=== PATIENT | female | born 1985 | race Two or more races ===

== ENCOUNTER 2021-11-24 09:12 | Emergency (ER) | payer OTHER, MEDICAID, SELFPAY ==
--- NOTE | ~2021-11-24 | US_ITS ---
EXAMINATION: US ABDOMEN LIMITED CLINICAL INFORMATION: Right upper quadrant pain. COMPARISON: Previous CT of the abdomen and pelvis from earlier the same day TECHNIQUE: Real-time imaging of the right upper quadrant abdominal viscera. FINDINGS: The gallbladder is upper normal in size measuring 10 x 4.5 x 5 cm in dimension. No gallstones are seen. The gallbladder wall is normal. There is no pericholecystic fluid. The common bile duct is normal in caliber measuring 0.4 cm. US/US abdomen limited IMPRESSION: Upper normal-size gallbladder. No gallstone seen.
--- NOTE | ~2021-11-24 | CT_ITS ---
EXAMINATION: CT ABDOMEN AND PELVIS WITHOUT CONTRAST CLINICAL INFORMATION: Abdominal pain COMPARISON: None TECHNIQUE: Multidetector volumetric imaging was performed from the superior aspect of the liver through the pubic symphysis. Sagittal and coronal reformatted images were obtained on the technologist's workstation. This CT examination was performed using dose optimization techniques as appropriate, variously including the following: *Automated exposure control *Adjustment of mA and/or kV according to patient size (this includes techniques or standardized protocols for targeted exams where dose is matched to indication/reason for exam; i.e. extremities or head) *Use of iterative reconstruction technique DLP: 768 mGy-cm FINDINGS: LUNG BASES: The visualized lung bases are unremarkable. LIVER, GALLBLADDER, AND BILIARY TREE: The liver is normal in size, shape, and attenuation. No focal hepatic lesion or biliary ductal dilatation is present. The gallbladder is upper normal in size measuring 4.5 x 4.5 x 10 cm. No gallstones are appreciated by CT scan. PANCREAS: Unremarkable. SPLEEN: Unremarkable. ADRENAL GLANDS: Unremarkable. KIDNEYS AND URETERS: The kidneys are normal in size, shape, and attenuation. No hydronephrosis, hydroureter, or calculi seen. No perinephric stranding. BLADDER: Unremarkable. GASTROINTESTINAL TRACT: There are 2 linear radiopaque densities that abuts the proximal sigmoid void: In the upper midline pelvis and left lateral wall of the more distal sigmoid colon in the more inferior pelvis. It is uncertain whether this is related to previous postsurgical change to the colon or could represent a malpositioned FERRYBOAT OPERATOR HELPER device. The small and large bowel is otherwise normal. There is no free air. There is no ascites. The appendix is normal. The appendix is unremarkable. ABDOMINAL WALL: There is diastasis of the rectus muscles. There are postsurgical changes to the lower abdominal wall. LYMPH NODES: Normal. VASCULAR: Unremarkable. PELVIC VISCERA: There are bilateral Essure devices in the pelvis that appear appropriately positioned in the fallopian tubes. There are 2 additional linear densities in the pelvis outside the uterus that abuts the left side of the sigmoid colon in the low pelvis axial image 71 series 3 and about the more proximal sigmoid colon in the upper pelvis for example axial image 69 series 3. It is uncertain whether this represents postsurgical change to the colon or could represent abnormal position of FERRYBOAT OPERATOR HELPER device. The uterus and adnexa are otherwise unremarkable. OSSEOUS STRUCTURES: Unremarkable. CT/CT abdomen pelvis wo con IMPRESSION: Upper normal-size gallbladder. No gallstones are appreciated by CT. Could be better evaluated with ultrasound if clinically indicated. No biliary duct dilatation. Bilateral fallopian tube Essure devices. There are 2 additional linear radiopaque densities in the pelvis adjacent to the sigmoid colon. It is uncertain whether this is related to previous surgery to the sigmoid colon or could represent abnormally positioned FERRYBOAT OPERATOR HELPER devices. Clinical correlation recommended. Fleischner guidelines were followed.
[2021-11-24 09:17] VITALS: BP 134/83; PULSE 88; RESP 18; TEMP 36; O2SAT 100; BMI 37.5
[2021-11-24 09:28] LABS: MANUAL DIFF FLAG NO
[2021-11-24 09:30] LABS: Basophils Percent Auto 0.4 % (0-2); Eosinophils Absolute Auto 0.1 X10*3/uL (0.0-0.4); Eosinophils Percent Auto 1.2 % (0-4); Hematocrit 41.4 % (37.0-47.0); Hemoglobin 13.2 g/dl (12.0-16.0); Imm Gran Abs Auto 0.06 X10*3/uL (0.00-0.03); Imm Gran Pct Auto 0.7 % (0.0-0.4); Lymphocytes Absolute Auto 2.7 X10*3/uL (1.2-4.9); Mean Corpuscular HGB Conc 31.9 g/dl (31.0-35.0); Mean Corpuscular Volume 84.8 fL (80.0-98.0); Mean Platelet Volume 9.8 fL (9.4-12.3); Monocytes Absolute Auto 0.5 X10*3/uL (0.1-1.2); Monocytes Percent Auto 5.3 % (2-11); Neutrophils Absolute Auto 5.2 x10*3/uL (2.0-8.3); Neutrophils Percent Auto 60.4 % (45-73); Platelet Count 333 X10*3/uL (160-400); Red Blood Count 4.88 X10*6/uL (4.20-5.50); Red Cell Distribution Width 12.7 % (11.0-16.0); White Blood Count 8.6 X10*3/uL (4.8-10.8)
--- NOTE | 2021-11-24 09:37 | ED_ITS ---
HPI - Abdominal Pain General Chief Complaint: Abdominal Pain Stated Complaint: lower abd pain Time Seen by Provider: 11/24/21 09:27 Source: patient Mode of arrival: ambulatory Limitations: no limitations History of Present Illness HPI narrative: This is 56 years old of female with no past medical history presented to the ED with a chief complaint of right upper quadrant abdominal pain radiating to the back, symptoms started 23:00 last night MD elicited complaint: abdominal pain Pertinent past history: none Onset (ago): day(s) (1) Pain Consistency: constant Location: RUQ Severity: moderate Quality: aching Migration to: no migration Exacerbating factors: nothing Relieving factors: nothing Associated symptoms: nausea Related Data Patient : No Allergies Allergy/AdvReac Type Severity Reaction Status Date / Time No Known Allergies Allergy Verified 11/24/21 09:31 Review of Systems Constitutional: Reports no additional constitutional complaints Eyes: Reports no additional eye complaints Reports system reviewed and no additional complaints, except as documented Cardiovascular: Reports no additional cardiovascular complaints Respiratory: Reports no additional respiratory complaints Gastrointestinal: Reports no additional gastrointestinal complaints Genitourinary: Reports no additional female genitourinary complaints Reports system reviewed and no additional complaints, except as documented Psychiatric: Reports no additional psychiatric complaints Endocrine: Reports no additional endocrine complaints Hematologic/Lymphatic: Reports no additional hematologic/lymphatic complaints PMFSH Past Medical History PMFSH Narrative: denies any past medical history Social History Social History Advance Directives: No Advance Directives Information Provided: No Patient : No Physical Exam ED Vital Signs: Vital Signs - 24 hr 11/24/21 09:17 11/24/21 10:27 11/24/21 13:13 Temperature 96.8 F Pulse Rate 88 68 69 Respiratory Rate 18 14 16 Blood Pressure 134/83 124/63 115/63 Pulse Oximetry 100 98 99 BMI result Body Mass Index 37.5 Const General: cooperative Nutritional Appearance: average body habitus Orientation/consciousness: patient oriented x3 Limitations: no limitations HENMT Head: Yes normal to inspection Ears: hearing grossly normal bilaterally General nose exam: Normal external nose present Face and sinus: Yes normal facial exam Mouth: Normal oral and palatal mucosa present Throat: Yes posterior oropharynx normal Neck Neck: Yes normal visual inspection, Yes full ROM and Yes no lymphadenopathy Chest Chest palpation & inspection: normal inspection of the chest Resp Effort & Inspection: normal respiratory effort Auscultation: clear to auscultation bilaterally Cardio Rate: regular rate Rhythm: regular rhythm GI Inspection: Yes normal to inspection Palpation (GI): Tenderness to palpation present (GI) ( tenderness in the right upper quadrant present) Auscultation: normal bowel sounds Skin General skin exam: no rashes or lesions noted and elasticity normal Neuro General: patient oriented x3 Course Reevaluation(s) Reevaluation #1: I re-evaluated the patient this time she is doing much better she is pain-free workup was unremarkable CT scan of abdomen and pelvis no bowel pathology, ultrasound of the right upper quadrant no cholecystitis no gallstone good blood was in the upper normal size no evidence of pericystic fluid MDM - Abdominal Pain Lab Data Result diagrams: 11/24/21 09:24 11/24/21 09:25 Labs: Lab Results 11/24/21 11/24/21 11/24/21 Range/Units 09:24 09:25 09:34 WBC 8.6 (4.8-10.8) X10*3/uL RBC 4.88 (4.20-5.50) X10*6/uL Hgb 13.2 (12.0-16.0) g/dl Hct 41.4 (37.0-47.0) % MCV 84.8 (80.0-98.0) fL MCH 27.0 (27.0-33.0) pg MCHC 31.9 (31.0-35.0) g/dl RDW 12.7 (11.0-16.0) % Plt Count 333 (160-400) X10*3/uL MPV 9.8 (9.4-12.3) fL Immature Gran % (Auto) 0.7 H (0.0-0.4) % Neut % (Auto) 60.4 (45-73) % Lymph % (Auto) 32.0 (20-40) % [place] % (Auto) 5.3 (2-11) % Eos % (Auto) 1.2 (0-4) % Baso % (Auto) 0.4 (0-2) % Lymph # (Auto) 2.7 (1.2-4.9) X10*3/uL [place] # (Auto) 0.5 (0.1-1.2) X10*3/uL Eos # (Auto) 0.1 (0.0-0.4) X10*3/uL Baso # (Auto) 0.0 (0.0-0.2) X10*3/uL Abs Immat Gran (auto) 0.06 H (0.00-0.03) X10*3/uL Absolute Neuts (auto) 5.2 (2.0-8.3) x10*3/uL Absolute Nucleated RBC 0.000 (0.0-0.012) X10*3/uL Nucleated RBC % (auto) 0.0 (0.0-0.2) /100WBC Sodium 138 (135-145) mmol/L Potassium 4.4 (3.3-5.1) mmol/L Chloride 106 (96-108) mmol/L Carbon Dioxide 25 (22-29) mmol/L Anion Gap 11 L (12-20) BUN 9 (9-16) mg/dL Creatinine 0.76 (0.5-1.4) mg/dL Estim Creat Clear Calc 106.6 Estimated GFR > 60 Random Glucose 105 (60-115) mg/dL Calcium 9.9 (8.4-10.2) mg/dL Total Bilirubin 0.4 (0.0-1.0) mg/dL AST 14 (5-31) U/L ALT 15 (0-31) U/L Alkaline Phosphatase 66 (39-117) U/L Total Protein 7.6 (6.5-8.0) g/dL Albumin 4.3 (3.5-5.0) g/dL Urine Color YELLOW Urine Appearance CLEAR Urine pH 6.5 (5.0-8.0) Ur Specific [place] 1.025 (1.005-1.025) Urine Protein NEG (NEG-TRACE) MG/DL Urine Glucose (UA) NEG (NEG) MG/DL Urine Ketones NEG (NEG) MG/DL Urine Blood 1+ H (NEG) Urine Nitrite NEG (NEG) Ur Leukocyte Esterase NEG (NEG) Urine RBC 5-9 H (0) /HPF Urine WBC 0 (0-4) /HPF Ur Squamous Epith Cells 1+ /LPF Urine Bacteria 1+ /LPF Urine Mucus 1+ /LPF Urine Test (NEGATIVE) 11/24/21 Range/Units 09:34 WBC (4.8-10.8) X10*3/uL RBC (4.20-5.50) X10*6/uL Hgb (12.0-16.0) g/dl Hct (37.0-47.0) % MCV (80.0-98.0) fL MCH (27.0-33.0) pg MCHC (31.0-35.0) g/dl RDW (11.0-16.0) % Plt Count (160-400) X10*3/uL MPV (9.4-12.3) fL Immature Gran % (Auto) (0.0-0.4) % Neut % (Auto) (45-73) % Lymph % (Auto) (20-40) % [place] % (Auto) (2-11) % Eos % (Auto) (0-4) % Baso % (Auto) (0-2) % Lymph # (Auto) (1.2-4.9) X10*3/uL [place] # (Auto) (0.1-1.2) X10*3/uL Eos # (Auto) (0.0-0.4) X10*3/uL Baso # (Auto) (0.0-0.2) X10*3/uL Abs Immat Gran (auto) (0.00-0.03) X10*3/uL Absolute Neuts (auto) (2.0-8.3) x10*3/uL Absolute Nucleated RBC (0.0-0.012) X10*3/uL Nucleated RBC % (auto) (0.0-0.2) /100WBC Sodium (135-145) mmol/L Potassium (3.3-5.1) mmol/L Chloride (96-108) mmol/L Carbon Dioxide (22-29) mmol/L Anion Gap (12-20) BUN (9-16) mg/dL Creatinine (0.5-1.4) mg/dL Estim Creat Clear Calc Estimated GFR Random Glucose (60-115) mg/dL Calcium (8.4-10.2) mg/dL Total Bilirubin (0.0-1.0) mg/dL AST (5-31) U/L ALT (0-31) U/L Alkaline Phosphatase (39-117) U/L Total Protein (6.5-8.0) g/dL Albumin (3.5-5.0) g/dL Urine Color Urine Appearance Urine pH (5.0-8.0) Ur Specific [place] (1.005-1.025) Urine Protein (NEG-TRACE) MG/DL Urine Glucose (UA) (NEG) MG/DL Urine Ketones (NEG) MG/DL Urine Blood (NEG) Urine Nitrite (NEG) Ur Leukocyte Esterase (NEG) Urine RBC (0) /HPF Urine WBC (0-4) /HPF Ur Squamous Epith Cells /LPF Urine Bacteria /LPF Urine Mucus /LPF Urine Test NEGATIVE (NEGATIVE) Imaging Data us abdomen: Radiologist's impression: EXAMINATION: US ABDOMEN LIMITED CLINICAL INFORMATION: Right upper quadrant pain. COMPARISON: Previous CT of the abdomen and pelvis from earlier the same day TECHNIQUE: Real-time imaging of the right upper quadrant abdominal viscera. FINDINGS: The gallbladder is upper normal in size measuring 10 x 4.5 x 5 cm in dimension. No gallstones are seen. The gallbladder wall is normal. There is no pericholecystic fluid. The common bile duct is normal in caliber measuring 0.4 cm. US/US abdomen limited IMPRESSION: Upper normal-size gallbladder. No gallstone seen. CT scan - abdomen: Radiologist's impression: PELVIC VISCERA: There are bilateral Essure devices in the pelvis that appear appropriately positioned in the fallopian tubes. There are 2 additional linear densities in the pelvis outside the uterus that abuts the left side of the sigmoid colon in the low pelvis axial image 71 series 3 and about the more proximal sigmoid colon in the upper pelvis for example axial image 69 series 3. It is uncertain whether this represents postsurgical change to the colon or could represent abnormal position of SUBMERSIBLE PILOT device. The uterus and adnexa are otherwise unremarkable. OSSEOUS STRUCTURES: Unremarkable.? CT/CT abdomen pelvis wo con IMPRESSION: Upper normal-size gallbladder. No gallstones are appreciated by CT. Could be better evaluated with ultrasound if clinically indicated. No biliary duct dilatation. ? Bilateral fallopian tube Essure devices. There are 2 additional linear radiopaque densities in the pelvis adjacent to the sigmoid colon. It is uncertain whether this is related to previous surgery to the sigmoid colon or could represent abnormally positioned SUBMERSIBLE PILOT devices. Clinical correlation recommended. Fleischner guidelines were followed. Dictated By: Shawna Kelly MD Signed By: <Electronically signed by Shawna Kelly MD in OV> 11/24/21 1141 Discharge Plan Discharge Clinical Impression: Abdominal pain Patient Disposition: Home, Self-Care Instructions: Abdominal Pain (ED) Additional Instructions: follow-up with your primary care physician, clear liquid diet. Referrals: Edmundo Young MD [Primary Care Provider] - 1 day Stand Alone Forms: Work/School Release
[2021-11-24] MEDS: Ketorolac Tromethamine 15 MG/ML VIAL IVPUSH ×2 (09:43→12:37)
[2021-11-24 09:50] LABS: Appearance Urine CLEAR; Color Urine YELLOW; Glucose Urine UA NEG (NEG); Leukocyte Esterase Urine NEG (NEG); Nitrite Urine NEG (NEG); PH 6.5 (5.0-8.0); Specific Gravity - Urine 1.025 (1.005-1.025); UACC Culture Trigger NO; Urine Blood 1+ (NEG); Urine Ketones NEG (NEG); Urine Protein NEG (NEG-TRACE)
[2021-11-24 09:52] LABS: UPreg QC Valid YES; Urine Pregnancy NEGATIVE (NEGATIVE)
[2021-11-24 09:57] LABS: Alanine Aminotransferase 15 U/L (0-31); Albumin Level 4.3 g/dL (3.5-5.0); Alkaline Phosphatase 66 U/L (39-117); Anion Gap 11 (12-20); Aspartate Amino Transferase 14 U/L (5-31); Bilirubin Total 0.4 mg/dL (0.0-1.0); Blood Urea Nitrogen 9 mg/dL (9-16); Calcium 9.9 mg/dL (8.4-10.2); Carbon Dioxide 25 mmol/L (22-29); Chloride 106 mmol/L (96-108); Creatinine Clr Calc Pharmacy 106.6; Estimated Glomerular Filt Rate > 60; Glucose Random 105 mg/dL (60-115); Potassium 4.4 mmol/L (3.3-5.1); Sodium 138 mmol/L (135-145); Total Protein 7.6 g/dL (6.5-8.0)
[2021-11-24 10:00] LABS: Bacteria Urine 1+ /LPF; Mucus Urine 1+ /LPF
[2021-11-24 10:01] LABS: Squamous Epithelial Cell Urine 1+ /LPF; WBC Urine 0 /HPF (0-4)
[2021-11-24 10:27] VITALS: BP 124/63; PULSE 68; RESP 14; O2SAT 98
[2021-11-24 13:13] VITALS: BP 115/63; PULSE 69; RESP 16; O2SAT 99
== END 2021-11-24 15:59 | disposition home or self-care (01) ==
PROVIDERS: Emergency Provider Emergency Medicine; PCP Internal Medicine
DX: R10.11 Right upper quadrant pain (principal); M54.50 Low back pain, unspecified; R11.0 Nausea; Z79.899 Other long term (current) drug therapy
CPT/HCPCS: 36415; 74176; 76705; 80053; 81001; 81025; 85025; 96374; 96376; 99283; 99284; J1885

== ENCOUNTER 2023-05-11 10:34 | Outpatient (REF) | payer OTHER, SELFPAY ==
[2023-05-11 14:17] LABS: MANUAL DIFF FLAG NO
[2023-05-11 14:21] LABS: Basophils Percent Auto 0.4 % (0-2); Eosinophils Absolute Auto 0.2 X10*3/uL (0.0-0.4); Eosinophils Percent Auto 2.2 % (0-4); Hematocrit 43.1 % (37.0-47.0); Hemoglobin 13.2 g/dl (12.0-16.0); Imm Gran Abs Auto 0.02 X10*3/uL (0.00-0.03); Imm Gran Pct Auto 0.3 % (0.0-0.4); Lymphocytes Absolute Auto 2.7 X10*3/uL (1.2-4.9); Lymphocytes Percent Auto 35.5 % (20-40); Mean Corpuscular HGB Conc 30.6 g/dl (31.0-35.0); Mean Corpuscular Hemoglobin 26.7 pg (27.0-33.0); Mean Corpuscular Volume 87.2 fL (80.0-98.0); Mean Platelet Volume 10.6 fL (9.4-12.3); Monocytes Absolute Auto 0.5 X10*3/uL (0.1-1.2); Monocytes Percent Auto 6.8 % (2-11); Neutrophils Absolute Auto 4.2 x10*3/uL (2.0-8.3); Neutrophils Percent Auto 54.8 % (45-73); Platelet Count 326 X10*3/uL (160-400); Red Blood Count 4.94 X10*6/uL (4.20-5.50); Red Cell Distribution Width 13.2 % (11.0-16.0); White Blood Count 7.7 X10*3/uL (4.8-10.8)
[2023-05-11 14:34] LABS: Alanine Aminotransferase 17 U/L (0-31); Albumin Level 4.2 g/dL (3.5-5.0); Alkaline Phosphatase 49 U/L (39-117); Anion Gap 11 (12-20); Aspartate Amino Transferase 16 U/L (5-31); Bilirubin Total 0.5 mg/dL (0.0-1.0); Blood Urea Nitrogen 9 mg/dL (9-16); Calcium 9.4 mg/dL (8.4-10.2); Carbon Dioxide 23 mmol/L (22-29); Chloride 108 mmol/L (96-108); Estimated Glomerular Filt Rate > 60; Glucose Random 85 mg/dL (60-115); Potassium 4.2 mmol/L (3.3-5.1); Sodium 138 mmol/L (135-145); Total Protein 7.5 g/dL (6.5-8.0)
== END 2023-05-11 10:35 | disposition home or self-care (01) ==
LOC: HO.CHCLDS 10:34
PROVIDERS: Visit Provider Internal Medicine
DX: J45.30 Mild persistent asthma, uncomplicated (principal)
CPT/HCPCS: 36415; 80053; 85025

== ENCOUNTER 2024-08-24 11:42 | Outpatient (REF) | payer OTHER, SELFPAY ==
--- OUTSIDE RECORDS SUMMARY | 2024-08-24 12:26 | XMS_ITS | Encounter Summary ---
Author Organization [employer] Address [address] [place] [address] Care Team Providers Care Pouncing Lathe Operator Name Role Phone Edmundo Young MD Primary Care Prov ider Encounter Details Date Type Department Care Team (Latest Contact Info) Description 08/24/2024 Travel Social History Tobacco Use Types Packs/Day Years Used Date Smoking Tobacco: Never Smokeless Tobacco: Never Alcohol Use Standard Drinks/Week Comments Yes 1 (1 standard drink = 0.6 oz pur e alcohol) Depression Answer Date Recorded Patient Health Questionnaire-9 Score 2 11/18/2023 Patient Health Questionnaire-9 Score 2 11/18/2023 Last PHQ-9: Questionnaire Data Not on file 0 11/18/2023 Housing Stability Answer Date Recorded What is your housing situation today? I have caitlin santiago 04/25/[address] you li ve. Do you have problems with any of the following? None of the above 04/25/2023 Food Insecurity Answer Date Recorded Within the past 12 months, y ou worried that your food would run out before you got money to buy more: Never True 04/25/2023 Within the past 12 months,th e food you bought just didn't last and you didn't have enough money to get more: Never True Transportation Answer Date Recorded In the past 12 months, has l ack of transportation kept you from medical appts, meetings, work or from getting things needed for daily living? No 04/25/2023 Utilities Answer Date Recorded In the past 12 months, has t he electric, gas, oil or water company threatened to shut off services in your home? No 04/25/2023 Depression Answer Date Recorded Patient Health Questionnaire-2 Score 0 11/18/2023 Comments No Sex and Gender Information Value Date Recorded Sex Assigned at Female 05/10/2022 10:27 AM EDT Legal Sex Female 10:27 AM EDT Gender Identity Choose not to disclose 2 10:27 AM EDT Sexual Orientation Choose not to disclose 2021 10:27 AM EDT documented as of this encounter Plan of Treatment Not on file documented as of this encounter Visit Diagnoses Not on filedocumented in this encounter Additional Health Concerns Assessment Noted Time PHQ-9 Depression Total Score: 2 11/18/19 24 10:55 AM EDT documented as of this encounter Care Teams Pouncing Lathe Operator Relationship Specialty Start Date End Date Edmundo Young MD [address] [place] [id number] PCP - General Internal Medicine 07/31/20 documented as of this encounter
--- OUTSIDE RECORDS SUMMARY | 2024-08-24 12:26 | XMS_ITS | Encounter Summary ---
Author Organization [employer] Address [address] [place] [address] Care Team Providers Care Fabric Finisher Name Role Phone Edmundo Young MD Primary Care Prov ider Reason for Visit * Reason Onset Date Comments Nurse Triage 08/20/2024 Encounter Details Date Type Department Care Team ([facility] st Contact Info) Description 08/20/2024 Telephone [facility] [address] [place] [address] Edmundo Young MD [address] [place] [address] Nurse Triage Social History Tobacco Use Types Packs/Day Years [...] EDT Gender Identity Choose not to disclose 10:27 AM EDT Sexual Orientation Choose not to disclose 2021 10:27 AM EDT documented as of this encounter Miscellaneous Notes * Telephone Encounter - Ama Interiano RN - 08/20/2024 11:41 AM EST Call returned to Rosy Faith to triage below. Reports having Chest pain that is intermittent. Last episode was yesterday. Pt reports pain only lasted seconds. Per pt mid sternal. Denies any radiatingpain, SOB or LIDA sx. Pt denies any asthma sx. Has not used albuterol inhaler. Per pt onset of pain x 3 days. Pt advised of disposition, wants an appointment for Tuesday. Pt advised that unable to bookSick on Site slots >48 hours in advanced. And that recommendation is same day visit to rule out cardiac cause vs. Muscle strain. Pt agrees to see [facility] prn today . Reviewed [facility] operating hours and that wait times vary. Reviewed home care advise, ER precautions and reasons to call back. Protocol Used: Chest Pain (Adult) Protocol-Based Disposition: See in Office or Video Visit Today Video visit offer not recorded Positive Triage Question: * All other patients with chest pain (Exception: Fleeting chest pain lasting a few seconds.) * All higher-acuity triage questions were negative Care Advice Discussed: * Reasons To Call Back - Chest pain increases in frequency, duration or severity - Chest pain lasts over 5 minutes - Difficulty breathing or unusual sweating occurs - You become worse * Telephone Encounter - Yanet Helms - 08/20/2024 11:28 AM EST Symptom: Chest Pain - Adult Outcome: Transfer to a nurse or provider NOW! Reason: Heaviness on chest The caller accepted this outcome. Contact pt at [phone] documented in this encounter Plan of Treatment Not on file documented as of this encounter Visit Diagnoses Not on filedocumented in this encounter Additional Health Concerns Assessment Noted Time PHQ-9 Depression Total Score: 2 11/18/19 24 10:55 AM EDT documented as of this encounter Care Teams Fabric Finisher Relationship Specialty Start Date End Date Edmundo Young MD [address] [place] [id number] PCP - General Internal Medicine 07/31/20 documented as of this encounter
--- OUTSIDE RECORDS SUMMARY | 2024-08-24 12:26 | XMS_ITS | Clinical Summary ---
Author Organization [employer] Address [address] [facility] 7t [place] [address] Care Team Providers Care Ocean Export Coordinator Name Role Phone Edmundo Young MD Primary Care Prov ider Allergies No known active allergies Medications budesonide-for moterol (Symbicort) 160-4.5 MCG/ACT inhaler Inhale 2 puffs in the morning and at bedtime. Rinse mouth with water after use to reduce aftertaste and incidence of candidiasis. Do not swallow. 1 each 04/21/20 23 Active albuterol 108 (90 Base) MCG/ACT inhaler Inhale 2 puffs every 4 (four) hours if needed for wheezing. 18 g 3 08/24/19 25 026 Active montelukast (Singulair) 10 MG tablet Take 1 tablet (10 mg) by mouth Once per day. 30 tablet 5 08/24/19 25 025 Active hydrOXYzine HCl (Atarax) 25 MG tablet Take 1 tablet (25 mg) by mouth if needed in the morning, at noon, and at bedtime for itching. 90 tablet 3 08/24/19 25 025 Active albuterol 108 (90 Base) MCG/ACT inhaler Inhale 2 puffs every 4 (four) hours if needed for wheezing. 18 g 11/09/19 23 025 Discontinued(Re order (will not trigger notification to Pharmacy)) montelukast (Singulair) 10 MG tablet Take 1 tablet (10 mg) by mouth in the morning. 30 tablet 5 04/21/20 23 025 Discontinued(Re order (will not trigger notification to Pharmacy)) Active Problems Problem Noted Date Diagnosed Date Class 2 obesity due to exces s calories without serious comorbidity with body mass index (BMI) of 36.0 to 36.9 in adult 11/18/2023 Assessment & Plan (11/18/2023 1:36 PM EDT): Patient interested in weight loss treatment, discussed different treatment options, risk vs benefits were discussed, she will call her insurance wants to try GLP-1 injections, will let me know if insurance is covering it. Moderate persistent asthma without complication 09/08/2023 Assessment & Plan (11/18/2023 1:37 PM EDT): Controlled, using albuterol less than 2 times a week, will leave on current treament Assessment & Plan (09/08/2023 2:31 PM EST): Patient not using inhaler as prescirbed, using it PRN, and refers using albuterol more frequent, told her the correct way is symbicort BID and albuterol as needed, call back if needing albuterol rescue more than 2 times a week Mild persistent asthma without complication 11/08 Assessment & Plan (04/25/2023 8:30 PM EDT): Symptoms improved but still using albuterol too frequent daily, will add start on symbicort, follow up in 3 months Assessment & Plan (12/20/2022 5:20 PM EDT): Symptoms improved after starting flovent, pending PFT, will add montelukast, follow up in 2 months Assessment & Plan (11/18/2022 11:12 PM EDT): Symptoms not improving, will start flovent, will also add medication for seasonal allergies, PFT will be ordered. Follow up in 1 month Subacute cough 10/28/2022 Assessment & Plan (10/28/2022 5:19 PM EDT): Patient started with viral symptoms about 3-4 weeks ago, she was seen last week due to bronchitis where she was prescribed antibiotics for 10 days, benzonatate and guaifenesin. Her symptoms have not improved, on examination no rhonchi/wheezing, she is saturating 97%. No reported fever/chills, Will provide prednisone for 5 day and albuterol as needed, told cough may last up to 6 weeks but should be improving Encounters Date Type Department Care Team Description 08/24/2024 11:15 AM EST Office Visit [facility] [address] [place] [address] Edmundo Young MD Anxiety (Primary Dx); Vitamin D deficiency; Dietary counseling; Exercise counseling; Moderate persistent asthma without complication 08/24/2024 Travel 08/20/2024 Telephone [facility] [address] [place] [address] Edmundo Young MD Nurse Triage from Last 3 Months Immunizations Name Administration Dates Next Due MMR 07/16/2014 Tdap 04/21/2017,02/23/2012 Social History Tobacco Use Types Packs/Day Years Used Date Smoking Tobacco: Never Smokeless Tobacco: Never Tobacco Cessation:Counseling Given: Not Answered Alcohol Use Standard Drinks/Week Comments Yes 1 [...] not to disclose 2021 10:27 AM EDT Last Filed Vital Signs Vital Sign Reading Time Taken Comments Blood Pressure 132/80 08/24/2024 11:19 AM EST Pulse 80 08/24/2024 11:19 AM EST Temperature 37.1 ??C (98.7 ??F) 08/24/2024 11:[address] Respiratory Rate 20 08/24/2024 11:19 AM EST Oxygen Saturation 96% 04/21/2023 4:39 PM EDT Inhaled Oxygen Concentration - - Weight 89.4 kg (197 lb) 08/24/2024 11:19 AM EST Height 154.9 cm (5' 1 ) 08/24/2024 11:19 AM EST Body Mass Index 37.22 08/24/2024 11:19 AM EST Plan of Treatment Health Maintenance Due Date Last Done Comments HIV Screening 1987 Alcohol/Substance Use Screening 1999 Family Planning (PISQ) 2002 Hepatitis C Screening 2005 Hepatitis B Vaccines (1 of 3 - 19+ 3-dose series) 2006 Pneumococcal Vaccine: Pediatrics (0 to 5 Years) and At-Risk Patients (6 to 49) Years) (1 of 2 - PCV) 2006 Pap Smear 2008 Cervical Cancer Screening 2017 HPV/Cotest 2017 Dental Oral Exam 04/30/2018 10/28/2017, 01/02/2015 Dental Prophylaxis 03/31/2019 09/27/2018, 10/28/2017 Dental X-Ray: Bitewings 09/30/2019 09/29/19 19, 01/02/2015 SDOH Screening 12/21/2023 12/20/2022 COVID-19 Vaccine (3 - 2023-2 5 season) 2024 08/21/2020, 07/24/2020 Influenza Vaccine (#1) 2024 Depression Screening 11/17/2024 11/18/2023, 11/18/2023 Tobacco Screening 11/17/2024 11/18/2023 Dental X-Ray: Full Mouth 04/15/2025 022, 09/28/2018, 01/02/2015 Lipid Panel 11/09/2026 11/09/2021 DTaP/Tdap/Td Vaccines (3 - T d or Tdap) 04/21/2027 04/21/2017, 02/23/2012 Zoster Vaccines (1 of 2) 2037 RSV Patients and Patients Aged 60 years or older (1 - 1-dose 75+ series) 2062 HIB Vaccines Aged Out No longer eligi ble based on patient's age to complete this topic HPV Vaccines Aged Out No longer eligi ble based on patient's age to complete this topic Hepatitis A Vaccines Aged Out No long er eligible based on patient's age to complete this topic IPV Vaccines Aged Out No longer eligi ble based on patient's age to complete this topic Meningococcal Vaccine Aged Out No artis rick eligible based on patient's age to complete this topic RSV under 20 months Aged Out No longe r eligible based on patient's age to complete this topic Rotavirus Vaccines Aged Out No longer eligible based on patient's age to complete this topic Procedures Procedure Name Priority Date/Time Associated Diagnosis Comments PANORAMIC RADIOGRAPHIC IMAGE Routine 04/14/2022 12:00 AM EDT LIPID PANEL, STANDARD Routine 11/09/2021 11:39 AM EDT INTRAORAL - COMPLETE SERIES OF RADIOGRAPHIC IMAGES Routine 09/28/2018 12:00 AM EDT PROPHYLAXIS - ADULT Routine 09/27/2018 1 2:00 AM EDT PERIODIC ORAL EVALUATION - ESTABLISHED PATIENT Routine 10/28/2017 12:00 AM EDT from Last 3 Months or Most Recently Relevant to Health Maintenance Results * (ABNORMAL) LIPID PANEL, STANDARD (11/09/2021 11:39 AM EDT) Chol/HDLC Ratio 2.8 <5.0 (calc) [facility] Cholesterol, Total 110 <200 mg/dL [facility] HDL Cholesterol 39(L) > OR = 50 mg/dL [facility] LDL Cholesterol 56 mg/dL (calc) [facility] Comment: Reference range: <100 ?? Desirable range <100 mg/dL for primary prevention; ?? <70 mg/dL for patients with CHD or diabetic patients ?? with > or = 2 CHD risk factors. ?? LDL-C is now calculated using the Jin ?? calculation, which is a validated novel method providing ?? better accuracy than the Friedewald equation in the ?? estimation of LDL-C. ?? Chencho FISHMAN et al. AWILDA. 2013;310(19): 7905-5582 ?? (http://Twistle.Marinelayer/faq/HXB106) Non-HDL Cholesterol 71 <130 mg/dL (calc) [facility] Comment: For patients with diabetes plus 1 major ASCVD risk ?? factor, treating to a non-HDL-C goal of <100 mg/dL ?? (LDL-C of <70 mg/dL) is considered a therapeutic ?? option. Triglycerides 66 <150 mg/dL [facility] 11/09/2021 11:3 9 AM EDT Edmundo Sullivan MD LAB BLOOD ORDERABL ES Final Result [facility] [address] from Last 3 Months or Most Recently Relevant to Health Maintenance Insurance [facility] , [address] [place] [address] [facility] [address] [place] [id number] [facility] MEDICAID [address] [phone] [place] [id number] [place] [id number] [place] [id number] Care Teams Ocean Export Coordinator Relationship Specialty Start Date End Date Edmundo Young MD [address] [place] [id number] PCP - General Internal Medicine 07/31/20
--- OUTSIDE RECORDS SUMMARY | 2024-08-24 12:26 | XMS_ITS | Encounter Summary ---
Author Organization [employer] Address [address] [facility] 7t [place] [address] Care Team Providers Care Phys Ther Name Role Phone Edmundo Young MD Primary Care Prov ider Encounter Details Date Type Department Care Team ([facility] st Contact Info) Description 11/05/2022 Orders Only [facility] [address] [place], [place] [phone] Edmundo Young MD [address] [place], [place] [phone] Social History Tobacco Use Types Packs/Day Years Used Date Smoking Tobacco: Never Assessed Depression Answer Date Recorded Patient Health Questionnaire-9 Score 0 11/08/2022 Depression Answer Date Recorded Patient Health Questionnaire-2 Score 0 11/08/2022 Comments Unknown Sex and Gender Information Value Date Recorded Sex Assigned at Female 05/10/2022 10:27 AM EDT Legal Sex Female 10:27 AM EDT Gender Identity Choose not to disclose 10:27 AM EDT Sexual Orientation Choose not to disclose 2021 10:27 AM EDT COVID-19 Exposure Response Date Recorded In the last 10 days, have yo u been in contact with someone who was confirmed or suspected to have Coronavirus/COVID-19? No / Unsure 11/08/2022 3:46 PM EDT documented as of this encounter Plan of Treatment Not on file documented as of this encounter Visit Diagnoses Not on filedocumented in this encounter Care Teams Phys Ther Relationship Specialty Start Date End Date Edmundo Young MD [address] [place], [place] [phone] PCP - General Internal Medicine 07/31/20 documented as of this encounter
--- OUTSIDE RECORDS SUMMARY | 2024-08-24 12:26 | XMS_ITS | Clinical Summary ---
Author Organization [facility] it Address [address] [place] [address] Care Team Providers Care Marketing Information Coordinator Name Role Phone Parish De La O MD Primary Care Provi norman Allergies No known active allergies Medications albuterol HFA (PROAIR HFA ; PROVENTIL HFA ; VENTOLIN HFA) 90 mcg/actuation inhaler Inhale 2 Puffs into the lungs every 4 hours as needed for Cough or Wheezing. 04/22/2020 Active ondansetron (ZOFRAN) 8 mg tablet Take 1 Tab by mouth every 8 hours as needed for Nausea. 07/26/2018 Active predniSONE (DELTASONE) 10 mg tablet Take 5 tab oral once daily for one day then take 4 tab oral once daily for one day then take 3 tab oral once daily for one day then take 2 tab oral once daily for one day then take 1 tab oral once daily for one day 04/22/2020 Active Immunizations Name Administration Dates Next Due MMR, measles mumps and rubel la Live (Priorix; M-M-R II) 12mo and older 07/16/2014 PPD Test 07/10/2014 Tdap Tetanus diptheria acell ular pertussis (Boostrix; Adacel) 7yo and older 04/21/2017,02/23/2012 Surgical History Surgery Date Site/Laterality Comments SECTION 2007 and 2012 PROCEDURE: HISTORICAL ; COMMENT: 2016 sigmoid resection 2nd to paraguard IUD perforation involving sigmoid OTHER SURGICAL HISTORY PROCEDURE: [place] WEDGE EXCISION SKIN NAIL FOLD HAND SURGERY PROCEDURE: [place] UNLISTED PROCEDURE HANDS/FINGERS; COMMENT: historical, finger surgery OTHER SURGICAL HISTORY 2007 PROCEDURE: SCREENING COLPOSCOPY Medical History Medical History Date Comments induced hypertensi on, antepartum DX: induced hyperte nsion, antepartum; COMMENT: 2007 Depression DX:Depression; C OMMENT: hx no meds Historical Medical DX 04/22/2020 DX:NO ACTI VE MEDICAL PROBLEMS Family History Medical History Relation Name Comments Breast cancer Aunt at around age 50 Diabetes Father Depression Mother Hypertension Mother BRACA negative Relation Name Status Comments Aunt Father Alive DM Maternal Grandfather Alive Maternal Grandmother Alive Mother Alive HTN Paternal Grandfather Paternal Grandmother Sister Alive Son Alive Asthma Social History Tobacco Use Types Packs/Day Years Used Date Smoking Tobacco: Never Smokeless Tobacco: Never Alcohol Use Standard Drinks/Week Comments Yes 0 (1 standard drink = 0.6 oz pur e alcohol) Comments Unknown Sex and Gender Information Value Date Recorded Sex Assigned at Not on file Legal Sex Female 10:46 PM EST Gender Identity Not on file Sexual Orientation Not on file Obstetrics History Plan of Treatment Upcoming Encounters Date Type Department Care Team (Late st Contact Info) Description 09/07/2024 11:15 AM EST Office [facility] [address] [place] [address] Gila Juarez, CN [address] [place] [address] Health Maintenance Due Date Last Done Comments Hepatitis B Vaccines (1 of 3 - 19+ 3-dose series) 2006 Cervical Cancer Screening: P ap Smear 01/15/2020 01/14/2017, 01/14/2017 Depression Screening 06/13/2022 Social Influencers of Health Screening 06/13/2022 COVID-19 Vaccine (1 - 2023-2 5 season) 2024 Influenza Vaccine (#1) 2024 DTaP,Tdap,and Td Vaccines (3 - Td or Tdap) 04/21/2027 04/21/2017, 02/23/2012 MMR Vaccines Aged Out 07/16/2014 No longer eligi ble based on patient's age to complete this topic HIV Screening Completed 12/29/2016 Hepatitis C Screening Completed 12/29/2016 HIB Vaccines Aged Out No longer eligi [...] patient's age to complete this topic Meningococcal ACWY Vaccine Aged Out N o longer eligible based on patient's age to complete this topic Meningococcal B Vacine Aged Out No lo nger eligible based on patient's age to complete this topic Pneumococcal Vaccine: Pediatrics (0 to 5 Years) and At-Risk Patients (6 to 64 Years) Aged Out No longer eligible b ased on patient's age to complete this topic RSV Immunization Patients Under 20 months Aged Out No longer eligible b ased on patient's age to complete this topic Varicella Vaccines Aged Out No longer eligible based on patient's age to complete this topic Procedures Procedure Name Priority Date/Time Associated Diagnosis Comments HPV Routine 01/14/2017 HEPATITIS C SCREENING Routine 12/29/2016 HIV SCREENING Routine 12/29/2016 from Last 3 Months or Most Recently Relevant to Health Maintenance Results * Cervical Cancer Screening: HPV (01/14/2017) [facility] Cervical Cancer Screening: HPV No Interpretation , Abstracted [facility] Provider HEALTH MAINTENANCE Final Result * HIV Screening (12/29/2016) [facility] HIV Screening Abstracted [facility] Provider HEALTH MAINTENANCE Final Result * Hepatitis C Screening (12/29/2016) [facility] Hepatitis C Screening Abstracted [facility] Provider MD HEALTH MAINTENANCE Final Result from Last 3 Months or Most Recently Relevant to Health Maintenance Advance Directives Documents on File Type Date Recorded Patient Security Assurance Specialist Expl anation Health Care Decision (hx) 07/05/2017 JACOBY ERICKSON DIRECTIVE Care Teams Marketing Information Coordinator Relationship Specialty Start Date End Date Parish De La O MD [address] [place] [address] [facility] [phone] PCP - General Internal Medicine 11/30/21
--- OUTSIDE RECORDS SUMMARY | 2024-08-24 12:26 | XMS_ITS | Encounter Summary ---
Author Organization [employer] Address [address] [facility] 7t [place] [address] Care Team Providers Care Stewarding Supervisor Name Role Phone Edmundo Young MD Primary Care Prov ider Encounter Details Date Type Department Care Team ([facility] st Contact Info) Description 08/24/2024 11:15 AM EST Office Visit [facility] [address] [place], [place] [phone] Edmundo Young MD [address] [place] [address] Anxiety (Primary Dx); Vitamin D deficiency; Dietary counseling; Exercise counseling; Moderate persistent asthma without complication Social History Tobacco Use Types Packs/Day Years [...] AM EDT documented as of this encounter Last Filed Vital Signs Vital Sign Reading Time Taken Comments Blood Pressure 132/80 08/24/2024 11:19 AM EST Pulse 80 08/24/2024 11:19 AM EST Temperature 37.1 ??C (98.7 ??F) 08/24/2024 11:[address] Respiratory Rate 20 08/24/2024 11:19 AM EST Oxygen Saturation - - Inhaled Oxygen Concentration - - Weight 89.4 kg (197 lb) 08/24/2024 11:19 AM EST Height 154.9 cm (5' 1 ) 08/24/2024 11:19 AM EST Body Mass Index 37.22 08/24/2024 11:19 AM EST documented in this encounter Plan of Treatment Scheduled Orders Name Type Priority Associated Diagnoses Orde r Schedule CBC auto differential Lab Routine Anxiety Expected: 08/24/2024 (Approximate), Expires: 08/24/2025 Hemoglobin A1c Lab Routine Anxiety Expected: 08/24/2024 (Approximate), Expires: 08/24/2025 Comprehensive Metabolic Panel Lab Routine Anxiety Expected: 08/24/2024 (Approximate), Expires: 08/24/2025 Lipid Panel, Standard Lab Routine Anxiety Expected: 08/24/2024 (Approximate), Expires: 08/24/2025 TSH W/Reflex to FT4 Lab Routine Anxiety Expected: 08/24/2024 (Approximate), Expires: 08/24/2025 HIV-1/2 Antigen and Antibodies, Fourth Generation, with Reflexes Lab Routine Anxiety Expected: 08/24/2024 (Approximate), Expires: 08/24/2025 Hepatitis C Antibody with Reflex to HCV, RNA, Quantitative, Real-Time PCR Lab Routine Anxiety Expected: 08/24/2024, Expires: 08/24/2025 Iron And Total Iron Binding Capacity Lab Routine Vitamin D deficiency Expected: 08/24/2024, Expires: 08/24/2025 Vitamin B12 (Cobalamin) and Folate Panel, Serum Lab Routine Vitamin D deficiency Expected: 08/24/2024 (Approximate), Expires: 08/24/2025 Vitamin D, 25-Hydroxy, Total, Immunoassay Lab Routine Vitamin D deficiency Expected: 08/24/2024 (Approximate), Expires: 08/24/2025 documented as of this encounter Visit Diagnoses Diagnosis Anxiety- Primary Anxiety state, unspecified Vitamin D deficiency Dietary counseling Dietary surveillance and counseling Exercise counseling Moderate persistent asthma without complication documented in this encounter Additional Health Concerns Assessment Noted Time PHQ-9 Depression Total Score: 2 11/18/19 24 10:55 AM EDT documented as of this encounter Care Teams Stewarding Supervisor Relationship Specialty Start Date End Date Edmundo Young MD [address] [place] [phone] PCP - General Internal Medicine 07/31/20 documented as of this encounter
--- OUTSIDE RECORDS SUMMARY | 2024-08-24 12:26 | XMS_ITS | Encounter Summary ---
Author Organization [employer] Address [address] [facility] 7t [place] [address] Care Team Providers Care Manager Personal Name Role Phone Edmundo Young MD Primary Care Prov ider Encounter Details Date Type Department Care Team (Latest Contact Info) Description 09/27/2018 Abstract [facility] CONVERSIONS Dental, Provider, DDS Social History Tobacco Use Types Packs/Day Years Used Date Smoking Tobacco: Never Assessed Comments Unknown Sex and Gender Information Value [...] on filedocumented in this encounter Care Teams Manager Personal Relationship Specialty Start Date End Date Edmundo Young MD [address] [place] [address] PCP - General Internal Medicine 07/31/20 documented as of this encounter
[2024-08-24 14:12] LABS: MANUAL DIFF FLAG NO
[2024-08-24 14:23] LABS: Basophils Percent Auto 0.6 % (0-2); Eosinophils Absolute Auto 0.1 X10*3/uL (0.0-0.4); Eosinophils Percent Auto 1.3 % (0-4); Hematocrit 38.5 % (37.0-47.0); Hemoglobin 12.1 g/dl (12.0-16.0); Imm Gran Abs Auto 0.03 X10*3/uL (0.00-0.03); Imm Gran Pct Auto 0.4 % (0.0-0.4); Lymphocytes Absolute Auto 2.4 X10*3/uL (1.2-4.9); Lymphocytes Percent Auto 33.9 % (20-40); Mean Corpuscular HGB Conc 31.4 g/dl (31.0-35.0); Mean Corpuscular Hemoglobin 27.1 pg (27.0-33.0); Mean Corpuscular Volume 86.3 fL (80.0-98.0); Mean Platelet Volume 10.7 fL (9.4-12.3); Monocytes Absolute Auto 0.4 X10*3/uL (0.1-1.2); Monocytes Percent Auto 5.9 % (2-11); Neutrophils Absolute Auto 4.1 x10*3/uL (2.0-8.3); Neutrophils Percent Auto 57.9 % (45-73); Platelet Count 319 X10*3/uL (160-400); Red Blood Count 4.46 X10*6/uL (4.20-5.50); Red Cell Distribution Width 13.1 % (11.0-16.0); White Blood Count 7.1 X10*3/uL (4.8-10.8)
[2024-08-24 14:40] LABS: Estimated Average Glucose 111 mg/dL; Hemoglobin A1C 117.3226 umol/L; Hemoglobin A1c % 5.5 % (<6.0); Total Hemoglobin (HGBA1C) 3165.7155 umol/L
[2024-08-24 15:03] LABS: Alanine Aminotransferase 13 U/L (0-31); Alkaline Phosphatase 57 U/L (39-117); Anion Gap 9 (12-20); Aspartate Amino Transferase 21 U/L (5-31); Bilirubin Total 0.5 mg/dL (0.0-1.0); Blood Urea Nitrogen 8 mg/dL (9-16); Carbon Dioxide 23 mmol/L (22-29); Chloride 110 mmol/L (96-108); Cholesterol 99 mg/dL (<200); Estimated Glomerular Filt Rate > 60; Glucose Random 95 mg/dL (60-115); HDL Cholesterol 36 mg/dL (>40); Iron 73 mcg/dL (30-160); LDL Cholesterol Calculated 50 mg/dL (<100); Percent Iron Saturation 28 % (15-50); Potassium 4.1 mmol/L (3.3-5.1); Sodium 138 mmol/L (135-145); Total Iron Binding Capacity 259 mcg/dL (228-428); Total Protein 7.2 g/dL (6.5-8.0); Triglycerides 69 mg/dL (<150); Unsaturated Iron Binding 186 ug/dL
[2024-08-24 15:04] LABS: TSH reflex Free T4 2.02 uIU/mL (0.32-4.0); Vitamin D 25-OH Total 22.4 ng/mL (>30)
[2024-08-24 15:13] LABS: Vitamin B12 239 pg/mL (200-900)
[2024-08-25 03:40] LABS: HIV AB/AG Nonreactive (Nonreactive); HIV Num 1 0.06 S/CO (0.00-0.99); ~HepC Num1 0.09 S/CO (0.00-0.79); ~Hepatitis C Antibody Nonreactive (Nonreactive)
== END 2024-08-24 11:43 | disposition home or self-care (01) ==
LOC: HO.CHCLDS 11:42
PROVIDERS: Visit Provider Internal Medicine
DX: F41.9 Anxiety disorder, unspecified (principal); E55.9 Vitamin D deficiency, unspecified; Z13.1 Encounter for screening for diabetes mellitus; Z13.6 Encounter for screening for cardiovascular disorders
CPT/HCPCS: 36415; 80053; 80061; 82306; 82607; 82746; 83036; 83540; 84443; 85025; 86803; 87389

== ENCOUNTER 2025-01-29 08:20 | Outpatient (REF) | payer OTHER, SELFPAY ==
--- OUTSIDE RECORDS SUMMARY | 2025-01-29 08:30 | XMS_ITS | Encounter Summary ---
Author Organization [employer] Address [address] [facility] 7t [place] [address] Care Team Providers Care Cement Gun Operator Name Role Phone Edmundo Young MD Primary Care Prov ider Encounter Details Date Type Department Care Team ([facility] Contact Info) Description 01/28/2025 Telephone [facility] [address] [place], [place] [phone] Edmundo Young MD [address] [place] [address] Social History Tobacco Use Types Packs/Day Years [...] Sex Female 10:27 AM EDT Gender Identity Female 08/24/2024 2:36 PM EST Sexual Orientation Straight 08/24/2024 2: 36 PM EST documented as of this encounter Miscellaneous Notes * Telephone Encounter - Elin Fowler RN - 01/28/2025 2:26 PM EDT Patient walk-in requesting lab work due to feeling run-down, tired, and weakness. Labs entered. documented in this encounter Plan of Treatment Scheduled Orders Name Type Priority Associated Diagnoses Orde r Schedule Basic Metabolic Panel, Fasting Lab Routine Weakness Expected: 01/28/2025 (Approximate), Expires: 01/28/2026 CBC auto differential Lab Routine Weakness Expected: 01/28/2025 (Approximate), Expires: 01/28/2026 TSH W/Reflex to FT4 Lab Routine Screening for thyroid disorder Expected: 01/28/2025 (Approximate), Expires: 01/28/2026 documented as of this encounter Visit Diagnoses Diagnosis Weakness Other malaise and fatigue Screening for thyroid disorder documented in this encounter Additional Health Concerns Assessment Noted Time PHQ-9 Depression Total Score: 2 11/18/19 24 10:55 AM EDT documented as of this encounter Care Teams Cement Gun Operator Relationship Specialty Start Date End Date Edmundo Young MD [address] [place] [id number] PCP - General Internal Medicine 07/31/20 documented as of this encounter
--- OUTSIDE RECORDS SUMMARY | 2025-01-29 08:30 | XMS_ITS | Clinical Summary ---
Author Organization [address] Address [address] [place] [phone] Phone Care Team Providers Care Betting Clerk Name Role Phone Parish De La O [...] perforation involving sigmoid OTHER SURGICAL HISTORY PROCEDURE: ID WEDGE EXCISION SKIN NAIL FOLD HAND SURGERY PROCEDURE: ID UNLISTED PROCEDURE HANDS/FINGERS; COMMENT: historical, finger surgery OTHER SURGICAL HISTORY 2006 PROCEDURE: SCREENING COLPOSCOPY Medical History Medical History [...] on file Obstetrics History Plan of Treatment Health Maintenance Due Date Last Done Comments Hepatitis B Vaccines (1 of 3 - 19+ 3-dose series) 2006 Cervical Cancer Screening: P ap Smear 01/15/2020 01/14/2017, 01/14/2017 Social Influencers of Health Screening 06/13/2022 COVID-19 Vaccine ( - 2023-2 5 season) 2024 Depression Screening 07/11/2024 Influenza Vaccine (#1) 2025 DTaP,Tdap,and Td Vaccines (3 - Td or [...] age to complete this topic Meningococcal B Vaccine Aged Out No l onger eligible based on patient's age to complete this topic Pneumococcal Vaccine: Pediatrics (0 to 5 Years) and At-Risk Patients (6 to 49 Years) Aged Out No longer eligible b [...] Results * Cervical Cancer Screening: HPV (01/14/2017) Pathologist [facility] Cervical Cancer Screening: HPV No Interpretation , Abstracted [facility] Provider MD HEALTH MAINTENANCE Final Result * HIV Screening (12/29/2016) Pathologist [facility] HIV Screening Abstracted [facility] Provider MD HEALTH MAINTENANCE Final Result * Hepatitis C Screening (12/29/2016) Pathologist [facility] Hepatitis C Screening Abstracted [facility] Provider MD HEALTH MAINTENANCE Final Result from Last 3 Months or Most Recently Relevant to Health Maintenance Insurance MEDICAID - [place] Advance Directives Documents on File Type Date Recorded Patient Manager Estate Expl anation Health Care Decision (hx) 07/05/2017 JACOBY ERICKSON DIRECTIVE Care Teams Betting Clerk Relationship Specialty Start Date End Date Parish De La O MD [address] [place] [address] [phone] PCP - General Internal Medicine 11/30/21
[2025-01-29 11:18] LABS: MANUAL DIFF FLAG NO
[2025-01-29 11:34] LABS: Hematocrit 41.5 % (37.0-47.0); Hemoglobin 13.2 g/dl (12.0-16.0); Imm Gran Abs Auto 0.02 X10*3/uL (0.00-0.03); Imm Gran Pct Auto 0.3 % (0.0-0.4); Lymphocytes Absolute Auto 3.0 X10*3/uL (1.2-4.9); Mean Corpuscular HGB Conc 31.8 g/dl (31.0-35.0); Mean Corpuscular Hemoglobin 27.3 pg (27.0-33.0); Mean Corpuscular Volume 85.9 fL (80.0-98.0); NRBC Abs Auto 0.000 X10*3/uL (0.0-0.012); NRBC Pct Auto 0.0 /100WBC (0.0-0.2); Platelet Count 296 X10*3/uL (160-400); Red Blood Count 4.83 X10*6/uL (4.20-5.50); White Blood Count 7.2 X10*3/uL (4.8-10.8)
[2025-01-29 11:44] LABS: Anion Gap 10 (12-20); Blood Urea Nitrogen 8 mg/dL (9-16); Calcium 8.6 mg/dL (8.4-10.2); Carbon Dioxide 25 mmol/L (22-29); Chloride 110 mmol/L (96-108); Estimated Glomerular Filt Rate > 60; Potassium 4.3 mmol/L (3.3-5.1); Sodium 141 mmol/L (135-145)
== END 2025-01-29 08:21 | disposition home or self-care (01) ==
LOC: HO.HHCL 08:20
PROVIDERS: PCP Internal Medicine; Visit Provider Internal Medicine
DX: Z13.29 Encounter for screening for other suspected endocrine disorder (principal); R53.1 Weakness
CPT/HCPCS: 36415; 80048; 84443; 85025

== ENCOUNTER 2025-02-18 08:31 | Outpatient (REF) | payer OTHER, SELFPAY ==
--- OUTSIDE RECORDS SUMMARY | 2025-02-18 08:50 | XMS_ITS | Clinical Summary ---
Author Organization [employer] Address [address] [facility] [address] [place] [address] Care Team Providers Care Social Service Technician Name Role Phone Edmundo Young MD Primary Care Prov ider Allergies No known active allergies Medications budesonide-form oterol (Symbicort) 160-4.5 MCG/ACT inhaler Inhale 2 puffs in the morning and at bedtime. Rinse mouth with water after use to reduce aftertaste and incidence of candidiasis. Do not swallow. 1 each 11 3 Active albuterol 108 (90 Base) MCG/ACT inhaler Inhale 2 puffs every 4 (four) hours if needed for wheezing. 18 g 3 5 08/24/19 26 Active montelukast (Singulair) 10 MG tablet Take 1 tablet (10 mg) by mouth Once per day. 30 tablet 5 5 02/21/20 25 Active hydrOXYzine HCl (Atarax) 25 MG tablet Take 1 tablet (25 mg) by mouth if needed in the morning, at noon, and at bedtime for itching. 90 tablet 3 5 Active cholecalciferol (Vitamin D-3) 25 MCG (1000 UT) capsule Take 1 capsule (25 mcg) by mouth Once per day. 90 capsule 3 5 09/28/19 26 Active Active Problems Problem Noted Date Diagnosed Date [...] Encounters Date Type Department Care Team Description 01/28/2025 Telephone [facility] [address] [place] [address] Edmundo Young MD 12/06/2024 Refill [facility] [address] [place] [address] Orlin Bolton BDS from Last 3 Months Immunizations Immunization Administration Dates Next Due MMR 07/16/2014 Tdap [...] Orientation Straight 08/24/2024 2: 36 PM EST Last Filed Vital Signs Vital Sign Reading Time Taken Comments Blood Pressure 132/80 08/24/2024 11:19 AM EST Pulse 80 08/24/2024 11:19 AM EST Temperature 37.1 C (98.7 F) 08/24/2024 11:19 AM EST Respiratory Rate 20 08/24/2024 11:19 AM EST Oxygen Saturation 96% 04/21/2023 4:39 PM EDT Inhaled Oxygen Concentration - - Weight 89.4 kg (197 lb) 08/24/2024 11:19 AM EST Height 154.9 cm (5' 1 ) 08/24/2024 11:19 AM EST Body Mass Index 37.22 08/24/2024 11:19 AM EST Plan of Treatment Health Maintenance Due Date Last Done Comments Disability Screening 1987 Alcohol/Substance Use Screening 1999 Family Planning (PISQ) 2002 HPV Vaccines (1 - 3-dose series) 2002 Hepatitis B Vaccines (1 of 3 - 19+ 3-dose series) 2006 Pneumococcal Vaccine: Pediatrics (0 to 5 Years) and At-Risk Patients (6 to 49) Years (1 of 2 - PCV) 2006 Pap Smear 2008 Cervical Cancer Screening 2017 HPV/Cotest 2017 Dental Oral Exam 04/30/2018 10/28/2017, 01/02/2015 Dental Prophylaxis 03/31/2019 09/27/2018, 10/28/2017 Dental X-Ray: Bitewings 09/30/2019 09/29/19 19, 01/02/2015 SDOH Screening 12/21/2023 12/20/2022 COVID-19 Vaccine (3 - 2023-2 5 season) 2024 08/21/2020, 07/24/2020 Depression Screening 11/17/2024 11/18/2023, 11/18/2023 Tobacco Screening 11/17/2024 11/18/2023 Influenza Vaccine (#1) 2025 Dental X-Ray: Full Mouth 04/15/2025 022, 09/28/2018, 01/02/2015 DTaP/Tdap/Td Vaccines (3 - T d or Tdap) 04/21/2027 04/21/2017, 02/23/2012 Lipid Panel 08/24/2029 08/24/2024, 11/09/2021 Zoster Vaccines (1 of 2) 2037 RSV Patients and Patients Aged 60 years or older (1 - 1-dose 75+ series) 2062 HIV Screening Completed 08/24/2024 Hepatitis C Screening Completed 08/24/2024 HIB Vaccines Aged Out No longer eligi [...] Procedure Name Priority Date/Time Associated Diagnosis Comments TSH W/REFLEX TO FT4 Routine 01/29/2025 8 :28 AM EDT Screening for thyroid disorder CBC WITH AUTO DIFFERENTIAL Routine 01/29/2025 8:28 AM EDT Weakness BASIC METABOLIC PANEL, FASTING Routine 01/29/2025 8:28 AM EDT Weakness HEPATITIS C AB W/REFL TO HCV RNA, QN, PCR Routine 08/24/2024 11:43 AM EST Anxiety HIV 1/2 ANTIGEN/ANTIBODY, FOURTH GENERATION W/RFL Routine 08/24/2024 11:43 AM EST Anxiety LIPID PANEL, STANDARD Routine 08/24/2024 11:43 AM EST Anxiety PANORAMIC RADIOGRAPHIC IMAGE Routine 04/14/2022 12:00 AM EDT INTRAORAL - COMPLETE SERIES OF RADIOGRAPHIC IMAGES Routine 09/28/2018 12:00 AM EDT PROPHYLAXIS - ADULT Routine 09/27/2018 1 2:00 AM EDT PERIODIC ORAL EVALUATION - ESTABLISHED PATIENT Routine 10/28/2017 12:00 AM EDT from Last 3 Months or Most Recently Relevant to Health Maintenance Results * (ABNORMAL) Basic Metabolic Panel, Fasting (01/29/2025 8:28 AM EDT) Sodium 141 135 - 145 mmol/L [facility] Potassium 4.3 3.3 - 5.1 mmol/L [facility] Chloride 110(H) 96 - 108 mmol/L [facility] Carbon Dioxide 25 22 - 29 mmol/L [facility] Anion Gap 10(L) 12 - 20 [facility] Urea Nitrogen (BUN) 8(L) 9 - 16 mg/dL [facility] Creatinine, Serum 0.74 0.5 - 1.4 mg/dL [facility] Estimated Glomerular Filt Rate >60 [facility] Comment:Chronic Kidney Disea se: Estimated GFR < 60 mL/min/1.85g0Saiozr Kidney Disease: Estimated GFR < 15 mL/min/1.73m2 Glucose Fasting 95 60 - 99 mg/dL [facility] Calcium 8.6 8.4 - 10.2 mg/dL [facility] Blood Venous blood specimen / Unknown 01/29/2025 8:28 AM EDT 01/29/2025 11:13 AM EDT us Edmundo Sullivan MD LAB BLOOD ORDERABL ES Final Result [facility] [address] [place] [phone] * TSH W/Reflex to FT4 (01/29/2025 8:28 AM EDT) TSH reflex Free T4 2.55 0.32 - 4.0 uIU/mL [facility] Blood Venous blood specimen / Unknown 01/29/2025 8:28 AM EDT 01/29/2025 11:13 AM EDT Edmundo Sullivan MD LAB BLOOD ORDERABL ES Final Result [facility] [address] [place], [place] [phone] * (ABNORMAL) CBC auto differential (01/29/2025 8:28 AM EDT) White Blood Count 7.2 4.8 - 10.8 X10*3/uL [facility] Red Blood Count 4.83 4.20 - 5.50 X10*6/uL [facility] Hemoglobin 13.2 12.0 - 16.0 g/dl [facility] Hematocrit 41.5 37.0 - 47.0 % [facility] Mean Corpuscular Volume 85.9 80.0 - 98.0 fL [facility] Mean Corpuscular Hemoglobin 27.3 27.0 - 33.0 pg [facility] Mean Corpuscular HGB Conc 31.8 31.0 - 35.0 g/dl [facility] Red Cell Distribution Width 12.7 11.0 - 16.0 % [facility] Platelet Count 296 160 - 400 X10*3/uL [facility] Mean Platelet Volume 10.6 9.4 - 12.3 fL [facility] Neutrophils Percent Auto 49.7 45 - 73 % [facility] Imm Gran Pct Auto 0.3 0.0 - 0.4 % [facility] Lymphocytes Percent Auto 41.1(H) 20 - 40 % [facility] Monocytes Percent Auto 6.4 2 - 11 % [facility] Eosinophils Percent Auto 2.1 0 - 4 % [facility] Basophils Percent Auto 0.4 0 - 2 % [facility] NRBC Pct Auto 0.0 0.0 - 0.2 /100WBC [facility] Neutrophils Absolute Auto 3.6 2.0 - 8.3 x10*3/uL [facility] Imm Gran Abs Auto 0.02 0.00 - 0.03 X10*3/uL [facility] Lymphocytes Absolute Auto 3.0 1.2 - 4.9 X10*3/uL [facility] Monocytes Absolute Auto 0.5 0.1 - 1.2 X10*3/uL [facility] Eosinophils Absolute Auto 0.2 0.0 - 0.4 X10*3/uL [facility] Basophils Absolute Auto 0.0 0.0 - 0.2 X10*3/uL [facility] NRBC Abs Auto 0.000 0.0 - 0.012 X10*3/uL [facility] Blood Venous blood specimen / Unknown 01/29/2025 8:28 AM EDT 01/29/2025 11:13 AM EDT Edmundo Sullivan MD LAB BLOOD ORDERABL ES Final Result Performing Organization Address [facility] Co de Phone Number [facility] [address] [place] [phone] * Hepatitis C Antibody with Reflex to HCV, RNA, Quantitative, Real-Time PCR (08/24/2024 11:43 AM EST) Pathologist [facility] Hepatitis C Antibody Nonreactive Nonreactive [facility] Comment:Antibodies to HCV no t detected; does not exclude early acuteHCV infection. Blood Venous blood specimen / Unknown 08/24/2024 11:43 AM EST 08/24/2024 2:12 PM EST Edmundo Sullivan MD LAB BLOOD ORDERABL ES Final Result Performing Organization Address [facility] Co de Phone Number [facility] [address] [place] [phone] * HIV-1/2 Antigen and Antibodies, Fourth Generation, with Reflexes (08/24/2024 11:43 AM EST) HIV AB/AG Nonreactive Nonreactive [facility] Comment:HIV-1 p24 Ag and/or HIV-1/HIV-2 Ab not detected.A test result that is nonreactive does not exclude thepossibility of exposure to or infection with HIV-1 and/orHIV-2. Nonreactive results in this assay for individualswith prior exposure to HIV-1 and/or HIV-2 may be due toantigen and antibody levels that are below the limit ofdetection of this assay.The [employer] HIV Ag/Ab Combo assay result andsupplemental assay results should be interpreted inconjunction with the patient's clinical presentation,history and other laboratory results. If the results areinconsistent with clinical evidence, additional testing issuggested to confirm the result. Blood Venous blood specimen / Unknown 08/24/2024 11:43 AM EST 08/24/2024 2:12 PM EST us Edmundo Sullivan MD LAB BLOOD ORDERABL ES Final Result [facility] [address] [place] [phone] * (ABNORMAL) Lipid Panel, Standard (08/24/2024 11:43 AM EST) Triglycerides 69 <150 mg/dL [facility] Comment:Desirable Triglyceri de: less than 150 mg/dLBorderline High Triglyceride 150-199 mg/dLHigh Triglyceride: 200-499 mg/dLVery High Triglyceride: greater than or equal to 5OO mg/dL Cholesterol 99 <200 mg/dL [facility] Comment:Desirable Cholestero l: less than 200 mg/dLBorderline High Cholesterol: 200-239 mg/dLHigh Cholesterol: greater than 239 mg/dL LDL Cholesterol Calculated 50 <100 mg/dL [facility] Comment:Desirable LDL: less than 100 mg/dLNear Optimal/Above Optimal LDL: 110- 129 mg/dLBorderline High LDL: 130-159 mg/dLHigh LDL: 160-189 mg/dLVery High LDL: greater than or equal to 190 mg/dL HDL Cholesterol 36(L) >40 mg/dL [facility] Comment:Desirable HDL: great er than 40 mg/dL Note: This HDL assay may give artificially low results in patients with liver disease. Blood Venous blood specimen / Unknown 08/24/2024 11:43 AM EST 08/24/2024 2:12 PM EST Edmundo Sullivan MD LAB BLOOD ORDERABL ES Final Result [facility] [address] [place] [phone] from Last 3 Months or Most Recently Relevant to Health Maintenance Insurance [facility] , [address] [place] [address] [facility] STANDARD DENTAL-[facility] MEDICAID STAND ADULT Care Teams Social Service Technician Relationship Specialty Start Date End Date Edmundo Young MD [address] [place] [phone] PCP - General Internal Medicine 07/31/20
--- OUTSIDE RECORDS SUMMARY | 2025-02-18 08:50 | XMS_ITS | Clinical Summary ---
Author Organization [address] Building Address [address] [place] [phone] Phone Care Team Providers Care Manager Transfer Name Role Phone Parish De La O [...] perforation involving sigmoid OTHER SURGICAL HISTORY PROCEDURE: DC WEDGE EXCISION SKIN NAIL FOLD HAND SURGERY PROCEDURE: DC UNLISTED PROCEDURE HANDS/FINGERS; COMMENT: historical, finger surgery [...] * Cervical Cancer Screening: HPV (01/14/2017) Pathologist [facility] Cervical Cancer Screening: HPV No Interpretation , Abstracted [facility] Provider MD HEALTH MAINTENANCE Final Result * HIV Screening (12/29/2016) Pathologist [facility] HIV Screening Abstracted [facility] Provider MD HEALTH MAINTENANCE Final Result * Hepatitis C Screening (12/29/2016) Pathologist [facility] Hepatitis C Screening Abstracted [facility] Provider MD HEALTH MAINTENANCE Final Result from Last 3 Months or Most Recently Relevant to Health Maintenance Insurance [place]ICAID - [place] Advance Directives Documents on File Type Date Recorded Patient Tobacco Buyer Expl anation Health Care Decision (hx) 07/05/2017 JACOBY ERICKSON DIRECTIVE Care Teams Manager Transfer Relationship Specialty Start Date End Date Parish De La O MD [address] [place] [address] [place] [phone] PCP - General Internal Medicine 11/30/21
[2025-02-18 11:23] LABS: MANUAL DIFF FLAG NO
[2025-02-18 11:37] LABS: Hematocrit 39.5 % (37.0-47.0); Hemoglobin 12.4 g/dl (12.0-16.0); Imm Gran Abs Auto 0.03 X10*3/uL (0.00-0.03); Imm Gran Pct Auto 0.5 % (0.0-0.4); Lymphocytes Absolute Auto 2.5 X10*3/uL (1.2-4.9); Mean Corpuscular HGB Conc 31.4 g/dl (31.0-35.0); Mean Corpuscular Hemoglobin 27.4 pg (27.0-33.0); Mean Corpuscular Volume 87.2 fL (80.0-98.0); NRBC Abs Auto 0.000 X10*3/uL (0.0-0.012); NRBC Pct Auto 0.0 /100WBC (0.0-0.2); Platelet Count 290 X10*3/uL (160-400); Red Blood Count 4.53 X10*6/uL (4.20-5.50); White Blood Count 6.4 X10*3/uL (4.8-10.8)
[2025-02-18 11:57] LABS: Alanine Aminotransferase 17 U/L (0-31); Albumin Level 4.1 g/dL (3.5-5.0); Alkaline Phosphatase 53 U/L (39-117); Amylase 59 U/L (28-100); Anion Gap 10 (12-20); Aspartate Amino Transferase 26 U/L (5-31); Blood Urea Nitrogen 9 mg/dL (9-16); Calcium 8.9 mg/dL (8.4-10.2); Carbon Dioxide 28 mmol/L (22-29); Chloride 108 mmol/L (96-108); Cholesterol 120 mg/dL (<200); Estimated Glomerular Filt Rate > 60; HDL Cholesterol 39 mg/dL (>40); Lipase 26 U/L (8-78); Potassium 4.1 mmol/L (3.3-5.1); Sodium 142 mmol/L (135-145); Total Protein 6.9 g/dL (6.5-8.0); Triglycerides 89 mg/dL (<150)
[2025-02-18 12:24] LABS: Hemoglobin A1C 132.8868 umol/L; Total Hemoglobin (HGBA1C) 3293.0449 umol/L
[2025-02-19 05:24] LABS: Follicle Stimulating Hormone 6.1 mIU/mL
== END 2025-02-18 08:32 | disposition home or self-care (01) ==
LOC: HO.HHCL 08:31
PROVIDERS: PCP Internal Medicine; Visit Provider Internal Medicine Infectious Disease
DX: E66.01 Morbid (severe) obesity due to excess calories (principal); Z13.1 Encounter for screening for diabetes mellitus
CPT/HCPCS: 36415; 80053; 80061; 82150; 83001; 83002; 83036; 83690; 84443; 85025

== ENCOUNTER 2025-06-14 13:37 | Outpatient (REF) | payer OTHER, SELFPAY ==
--- NOTE | ~2025-06-14 | US_ITS ---
EXAMINATION: Ultrasound extremity, left CLINICAL INFORMATION: Lump on left arm COMPARISON: None TECHNIQUE: Ultrasound was done of the area of palpable abnormality indicated by the patient the left upper medial biceps area. FINDINGS: Area of clinical concern as indicated by the patient was scanned. No focal mass or fluid collection is identified. The underlying musculature appears unremarkable. Patient states lump is gone, no longer feels it. US/US Extremity Nonvas Limited LT IMPRESSION: No sonographically evident abnormality in the area of clinical concern as indicated by the patient. Electronically signed by: Jatinder Sage MD 06/14/2025 04:48 PM [facility]
--- OUTSIDE RECORDS SUMMARY | 2025-06-14 17:47 | XMS_ITS | Data Portability ---
Author Organization ESTEVAN SIMS MD [facility], Main Office Address [address] [place] [phone] Assessment No assessment recorded. Plan of Treatment Reminders Order Date Submit Date Provider Last Modified By Organization Details Last Modified Time Details Appointments None recorded. Lab CBC w/ diff [address] (Lab), [address] [place] [address], [phone], 5 16:15:04 CMP, serum or plasma [address] (Lab), [address] [place] [address], [address], 5 16:15:04 amylase + lipase, serum [address] (Lab), [address] [place] [address], [address], 5 16:15:04 lipid panel, serum [address] (Lab), [address] [place] [address], [address], 5 16:15:05 HbA1c (hemoglob in A1c), blood [address] [place] [address] (Lab), [address] [place] [address], [address], 5 16:15:05 TSH + free T4, serum [address] (Lab), [address] [place], [address], 5 16:15:05 AST/SGOT (aspartat e aminotran sferase), serum or plasma [address] (Lab), [address] [place] [address], [address], 5 16:15:05 ALT (alanine aminotran sferase), serum or plasma [address] (Lab), [address] [place] [address], [address], 5 16:15:05 lh + FSH, serum [address] (Lab), [address] [place], [address], 5 16:15:05 Referral None recorded. Procedures None recorded. Surgeries None recorded. Imaging None recorded. Medication Orders phentermi ne 37.[address] [facility] #[id number], [address] [place], [address], 11:37:04 ondansetr on HCl [address] [facility] #[id number], [address] [place], [address], 17:00:37 Imodium A-D [address] [facility] #[id number], [address] [place], [address], 17:00:37 Zepbound 2.5 mg/0.5 mL subcutane ous pen injector 2024 [facility]Pharmacy #[id number], [address] [place], [address], 12:07:14 ondansetr on HCl 4 mg tablet 2024 025 [facility]acy #[id number], [address] [place], [address], 12:07:16 Patient TargetsNo targets recorded. Patient InstructionsNo instructions recorded. Reason for Referral None Reported. Results Created Date Observation Date Name Description Value Unit Range Abnormal Flag Note LastModifiedBy Organization Detail LastModifiedTime Result Notes None recorded. Medical Equipment None Reported. Allergies No known drug allergies Medications Name Sig Start Date Stop Date Status Note LastModified by Organization Details LastModified Time IBU 800 mg tablet TAKE ONE TABLET THREE TIMES DAILY FOR 10 DAYS active Not Available Not Available No t Available ondansetron HCl 4 mg tablet Take 2 tablets twice a day by oral route. 2024 active Not Available Not Available Not Avai lable phentermine 15 mg capsule active Not Available Not Available Not Available meclizine 12.5 mg tablet TAKE ONE TABLET EVERY 8 HOURS FOR 10 DAYS active Not Available Not Available No t Available phentermine 37.5 mg tablet Take 1 tablet every day by oral route for 30 days, for weight loss. 2024 active Not Available Not Available Not Avai lable acetaminophe n ER 650 mg tablet,exten ded release TAKE ONE TABLET EVERY 8 HOURS NEEDED MILD PAIN, DO NOT BREAK, CRUSH, DISSOLVE OR CHEW active Not Available Not Available No t Available Imodium A-D 2 mg tablet Take 2 tablets as needed by oral route before meal(s) for 30 days, for diarrhea after eating. 2024 active Not Available Not Available Not Avai lable montelukast 10 mg tablet TAKE ONE TABLET DAILY active Not Available Not Available No t Available hydroxyzine HCl 25 mg tablet TAKE ONE TABLET THREE TIMES DAILY IN THE MORNING, AT NOON, AND AT BEDTIME NEEDED FOR ITCHING active Not Available Not Available Not Available albuterol sulfate HFA 90 mcg/actuatio n aerosol inhaler INHALE TWO PUFFS EVERY 4 HOURS NEEDED FOR WHEEZING active Not Available Not Available No t Available amoxicillin 875 mg-potassium clavulanate 125 mg tablet TAKE ONE TABLET TWICE DAILY UNTIL FINISHED active Not Available Not Available No t Available amoxicillin 500 mg-potassium clavulanate 125 mg tablet TAKE 1 TABLET BY MOUTH 3 TIMES DAILY FOR 10 DAYS active Not Available Not Available Not Available cholecalcife rol (vitamin D3) 25 mcg (1,000 unit) tablet TAKE ONE TABLET DAILY active Not Available Not Available No t Available Zepbound 2.5 mg/0.5 mL subcutaneous pen injector Inject 2.5 mg every week by subcutaneou s route for 30 days, for obesity. 2024 active Not Available Not Available Not Avai lable Vitals Date Recorded Body height Heart rate Body temperature Body mass index (BMI) Body weight Systolic And Diastolic Provider Name and Address Organization Details Last Updated DateTime 154.94 cm 84 /min 97.2 [degF] 40.1 kg/m2 58379.5 8 g 115/77 mm[Hg] Samira JACQUES MD [facility] 11:29:44 Date Recorded Body height Heart rate Body temperature Body mass index (BMI) Body weight Systolic And Diastolic Provider Name and Address Organization Details Last Updated DateTime 5 154.94 cm 92 /min 97.5 [degF] 40.1 kg/m2 72616.5 8 g 140/85 mm[Hg] Samira JACQUES MD [facility] 15:28:32 Social History None recorded. Functional Status None recorded. Mental Status None recorded. Family History Nothing Reported. Medical History No medical history recorded. Gynecological HistoryNo gynecological history recorded. Obstetrics History GPAL:G 0 P 0 0 0 0 Past Encounters Encounter ID Performer Location Encounter Start Date Encounter Closed Date Diagnosis/Indication Diagnosis SNOMED-CT Code Diagnosis ICD10 Code Diagnosis IMO Codes Diagnosis Note [id number] Ghazal Jacques MD Main Office [address] [place] [phone] 02/15/2025 11:11:31 02/15/2025 12:02:39 Body mass index 40+ - severely obese 956125216 E66.01 [id number] BMI 40.1Zepbou nd 2.5mg sq qw will be orderedpot ential side effects reviewed such as obstructio n, n/v/d, abdominal pain, visual changes.la bs.correct use reviewedto call with side effects or concernssh e will come in to get 1rst dose in the officeothe r weight loss options reviewed with pt.diet and exercise reviewed.w ill increase dose as tolerated qm.questio ns and concerns addressed. Nausea 958282999 R11.0 08065 zofran PRN for nausea [id number] Ghazal Jacques MD Main Office [address] [place] [phone] 05/17/2025 15:18:00 05/17/2025 16:04:11 Body mass index 40+ - severely obese 542233309 E66.01 57333379 BMI 40.1pt aware of the insurance denial of zepboundST ART Phentermin e 37.5 mg. Start 1/2 tab x 1-2 days, then 1 tab po qd.If insurance approves Phentermin e 15mg, she will start 1 tab po qd x2-3 days, and then increase to 2 tabs po qd.advised of side effects such as palpitatio n, chest pain, headache and willing to move forward- with phentermin e- will send in rx to pharmacyot her weight loss options reviewed with pt.topiram ate could be an option. t and exercise reviewed.f ollow up in one monthquest ions and concerns addressed. Nausea 350179263 R11.0 06992 zofran PRN for nausea- needs refill Loose stool 192598666 R1 9.5 004845 since gall bladder removed - is having issues with diarrhea/ loose stools after eatingwill order imodium-aw are that orlistat- another weight loss medication - can cause loose stools- pt would like to see if the phentermin e is approved Health Concerns Section Related Observation LastModified by Organization Detai ls LastModified Time None Recorded Concern Status LastModified by Organization Details LastModified Time None Recorded Advance Directives Directive None Recorded Payers Insurance Date Sequence Insurance Name Policy Number Policy Christianson Covered Member ID Christianson Member ID Guarantor Name 06/11/2025 2 [place] [facility] Rosy Faith [id number] Rosy Faith 06/11/[address] [facility] Rosy Faith [id number] Rosy Faith 06/11/[address] [facility] [id number] Rosy Faith [id number] Rosy Faith Notes Date Note Type Note Provider Name and Address Organization Details Recorded Time 02/15/2025 text/html ROS as noted in the HPI weight managementhas not been able to lose weighthas tried diet and exercise.no DM. no pancreatitis.social ETOH like twice a year.no drug use.cholecystectomy: diarrhea.migraine hx. has had HBP; no hyperlipidemia; no sleep apnea.on vit D; vertigo. no hx of cancer nor thyroid medullary cancer. no obstruction hx.BMI 40.1has tried diet and exercise.has tried to lose weight but unable to lose weight, and keeps gaining.has been 170lbs--> 212lbsfatigue. low energy. does not like how she looks or feels;goal of weight losstubal ligationdenies hepatitishx nausea.no STI hx.denies kidney disease Ghazal Jacques MD [address] [place] [address], [phone], [facility] - GHAZAL JACQUES MD [facility] 02/15/2025 16:33:17 05/17/2025 text/html ROS as noted in the HPI weight management has not been able to lose weightwilling to start;Orlistat offered, but she is worried about diarrhea.zepbound request has been submitted and denieddoes have occasional nausea- no related to heartburnalso is having issues with diarrhea since gall bladder surgery- will order imodium to be taken as directedcholecystect gustavo: diarrhea. migraine hx. has had HBP; no hyperlipidemia; no sleep apnea. has tried to lose weight but unable to lose weight, and keeps gaining.states that she wants to lose weight so she can continue to perform activities with her children- is getting fatigued and short of breath when trying to keep up with the childrens activities has been 170lbs--> 212lbs fatigue. low energy. does not like how she looks or feels; goal of weight loss tubal ligation hx nausea. no STI hx. 02/2025- FSH- 51, LH- 39, Creatinine-0.69, eGFR->60, Trig- 89, LDL-64, TC- 120, amylase/lipase- wnl A1C%- 5.8% Ghazal Jacques MD [address] [place] [address], [phone], [facility] GHAZAL JACQUES MD [facility] 05/22/2025 11:50:28 OBGyn Episode No OBEpisode recorded.
--- OUTSIDE RECORDS SUMMARY | 2025-06-14 17:47 | XMS_ITS | Encounter Summary ---
Author Organization [employer] Address [address] [place] [address] [address] [place] [address] Care Team Providers Care Account Classification Clerk Name Role Phone Edmundo Young MD Primary Care Prov ider Encounter Details Date Type Department Care Team (Latest Contact Info) Description 09/27/2018 Abstract [facility] CONVERSIONS Dental, Provider, DDS Social History Tobacco Use Types Packs/Day Years Used Date Smoking Tobacco: Never Assessed Comments Unknown Sex and Gender Information Value Date Recorded Sex Assigned at Female 05/10/2022 10:27 AM EDT Legal Sex Female 10:27 AM EDT Gender Identity Female 08/24/2024 2:36 PM EST Sexual Orientation Straight 08/24/2024 2: 36 PM EST documented as of this encounter Plan of Treatment Not on file documented as of this encounter Visit Diagnoses Not on filedocumented in this encounter Care Teams Account Classification Clerk Relationship Specialty Start Date End Date Edmundo Young MD [address] [place] [phone] PCP - General Internal Medicine 07/31/20 documented as of this encounter
--- OUTSIDE RECORDS SUMMARY | 2025-06-14 17:47 | XMS_ITS | Clinical Summary ---
Author Organization [employer] Address [address] [facility] 7t [place] [address] Care Team Providers Care Dry Cleaner Name Role Phone Edmundo Young MD Primary Care Prov ider Allergies No known active allergies Medications albuterol 108 (90 Base) MCG/ACT inhaler Inhale 2 puffs every 4 (four) hours if needed for wheezing. 18 g 3 5 08/24/19 26 Active cholecalcifero l (Vitamin D-3) 25 MCG (1000 UT) capsule Take 1 capsule (25 mcg) by mouth Once per day. 90 capsule 3 5 09/28/19 26 Active phentermine 15 MG capsule Take 1 capsule (15 mg) by mouth before breakfast. 30 capsule 05/24/2025 4:30 PM EST 5 06/23/20 25 Active topiramate (Topamax) 50 MG tablet Take 1 tablet (50 mg) by mouth Once per day. 30 tablet 1 05/24/2025 4:30 PM EST 5 07/21/19 26 Active budesonide-for moterol (Symbicort) 160-4.5 MCG/ACT inhaler Inhale 2 puffs in the morning and at bedtime. Rinse mouth with water after use to reduce aftertaste and incidence of candidiasis. Do not swallow. 1 each 3 05/22/20 25 Discontinu ed(Therapy completed) montelukast (Singulair) 10 MG tablet Take 1 tablet (10 mg) by mouth Once per day. 30 tablet 5 5 05/22/20 25 Discontinu ed(Therapy completed) hydrOXYzine HCl (Atarax) 25 MG tablet Take 1 tablet (25 mg) by mouth if needed in the morning, at noon, and at bedtime for itching. 90 tablet 3 5 05/22/20 25 Discontinu ed(Therapy completed) ibuprofen 600 MG tablet Take 1 tablet (600 mg) by mouth 3 times daily. 90 tablet 5 05/22/20 25 Discontinu ed(Therapy completed) Active Problems Problem Noted Date Diagnosed Date Class 2 obesity due to exces s calories without serious comorbidity with body mass index (BMI) of 36.0 to 36.9 in adult 11/18/2023 Assessment & Plan (05/22/2025 4:08 PM EST): Will start on phentermine and topamax, risk vs benefits discussed, follow up in 3 months Assessment & Plan (11/18/2023 1:36 PM EDT): [...] Encounters Date Type Department Care Team Description 06/14/2025 Orders Only [facility] [address] [place] [address] Sherin Chiang MD 05/22/2025 3:30 PM EST Telemedicine [facility] [address] [place] [address] Edmundo Young MD Class 2 obesity due to excess calories without serious comorbidity with body mass index (BMI) of 36.0 to 36.9 in adult (Primary Dx) 05/22/2025 Travel 04/19/2025 11:15 AM EDT Office Visit [facility] [address] [place] [address] Sherin Chiang MD Anxiety (Primary Dx); Skin lump of arm, left 04/19/2025 Travel from Last 3 Months Immunizations Immunization Administration Dates Next Due MMR 07/16/2014 Tdap 04/21/2017,02/23/2012 Social History Tobacco Use Types Packs/Day Years Used Date Smoking Tobacco: Never Passive Smoke Exposure: Never Smokeless Tobacco: Never Tobacco Cessation:Counseling Given: [...] Sign Reading Time Taken Comments Blood Pressure 140/80 04/19/2025 11:22 AM EDT Pulse 76 04/19/2025 11:22 AM EDT Temperature 36.3 C (97.4 F) 04/19/2025 11:22 AM EDT Respiratory Rate 20 04/19/2025 11:22 AM EDT Oxygen Saturation 96% 04/21/2023 4:39 PM EDT Inhaled Oxygen Concentration - - Weight 95.3 kg (210 lb) 04/19/2025 11:22 AM EDT Height 154.9 cm (5' 1 ) 08/24/2024 11:19 AM EST Body Mass Index 39.68 08/24/2024 11:19 AM EST Plan of Treatment [...] 09/29/19 19, 01/02/2015 SDOH Screening 12/21/2023 12/20/2022 Depression Screening 11/17/2024 11/18/2023, 11/18/2023 COVID-19 Vaccine (3 - 2024-2 6 season) 2025 08/21/2020, 07/24/2020 Influenza Vaccine (#1) 2025 Dental X-Ray: Full Mouth 04/15/2025 022, 09/28/2018, 01/02/2015 Tobacco Screening 04/19/2026 04/19/2025 DTaP/Tdap/Td Vaccines (3 - T d or [...] Procedure Name Priority Date/Time Associated Diagnosis Comments US EXTREMITY NON VASCULAR LEFT LIMITED Routine 06/14/2025 1:48 PM EST HEPATITIS C AB W/REFL TO HCV RNA, [...] Recently Relevant to Health Maintenance Results * US Extremity Non Vascular Left Limited (06/14/2025 1:48 PM EST) Anatomical Region Laterality Modality Ultrasound 06/14/2025 1:48 PM EST Narrative 06/14/2025 4:51 PM EST [facility] [address] [place] [address] [place] [address] Ultrasound Report Signed Patient: Rosy Faith MR#: [id number] : 1985 Acct:[id number] Age/Sex: 40 / F ADM Date: 06/14/25 Loc: HO.HMGCX Attending Dr: Sherin Chiang MD Ordering Physician: Sherin Chiang MD Date of Service: 06/14/25 Procedure(s): US Extremity Nonvas Limited LT Accession Number(s): [id number] cc: Sherin Chiang MD; Edmundo Young MD Reason for Exam: LUMP ON LEFT ARM EXAMINATION: Ultrasound extremity, left CLINICAL INFORMATION: Lump on left arm COMPARISON: None TECHNIQUE: Ultrasound was done of the area of palpable abnormality indicated by the patient the left upper medial biceps area. FINDINGS: Area of clinical concern as indicated by the patient was scanned. No focal mass or fluid collection is identified. The underlying musculature appears unremarkable. Patient states lump is gone, no longer feels it. US/US Extremity Nonvas Limited LT IMPRESSION: No sonographically evident abnormality in the area of clinical concern as indicated by the patient. Electronically signed by: Jatinder Sage MD 06/14/2025 04:48 PM [facility] Dictated By: Jatinder Sage MD Signed By: <Electronically signed by Jatinder Sage MD in OV> 06/14/25 1648 DD/ 1348 TD/TT: 06/14/25 1355 Nail Cutter: Procedure Note Donotuseinterpreter, Image - 06/14/2025 [facility] [address] [place] [address] [place] [address] Ultrasound Report Signed Patient: Rosy FaithMR#: [id number] : 1985Acct:[id number] Age/Sex: 40 / FADM Date: 06/14/25 Loc: HO.HMGCX Attending Dr: Sherin Chiang MD Ordering Physician: Sherin Chiang MD Date of Service: 06/14/25 Procedure(s): US Extremity Nonvas Limited LT Accession Number(s): [id number] cc: Sherin Chiang MD; Edmundo Young MD Reason for Exam: LUMP ON LEFT ARM EXAMINATION: Ultrasound extremity, left CLINICAL INFORMATION: Lump on left arm COMPARISON: None TECHNIQUE: Ultrasound was done of the area of palpable abnormality indicated by the patient the left upper medial biceps area. FINDINGS: Area of clinical concern as indicated by the patient was scanned. No focal mass or fluid collection is identified. The underlying musculature appears unremarkable. Patient states lump is gone, no longer feels it. US/US Extremity Nonvas Limited LT IMPRESSION: No sonographically evident abnormality in the area of clinical concern as indicated by the patient. Electronically signed by: Jatinder Sage MD 06/14/2025 04:48 PM EST Dictated By: Jatinder Sage MD Signed By: <Electronically signed by Jatinder Sage MD in OV> 06/14/25 1648 DD/ 1348 TD/TT: 06/14/25 1355 Nail Cutter: HB us Sherin Chiang MD IMG US PROCEDURES Final Resul t * Hepatitis C Antibody with Reflex to HCV, RNA, Quantitative, Real-Time PCR (08/24/2024 11:43 AM EST) Pathologist [facility] Hepatitis C Antibody Nonreactive Nonreactive [facility] Comment:Antibodies to HCV no t detected; does not exclude early acuteHCV infection. Blood Venous blood specimen / Unknown 08/24/2024 11:43 AM EST 08/24/2024 2:12 PM EST us Edmundo Sullivan MD LAB BLOOD ORDERABL ES Final Result [facility] [address] [place] [phone] * HIV-1/2 Antigen and Antibodies, Fourth Generation, with Reflexes (08/24/2024 11:43 AM EST) Pathologist [facility] HIV AB/AG Nonreactive Nonreactive [facility] Comment:HIV-1 p24 Ag and/or HIV-1/HIV-2 Ab not detected.A test result that is nonreactive does not exclude thepossibility of exposure to or infection with HIV-1 and/orHIV-2. Nonreactive results in this assay for individualswith prior exposure to HIV-1 and/or HIV-2 may be due toantigen and antibody levels that are below the limit ofdetection of this assay.The Imagga HIV Ag/Ab Combo assay result andsupplemental assay results should be interpreted inconjunction with the patient's clinical presentation,history and other laboratory results. If the results areinconsistent with clinical evidence, additional testing issuggested to confirm the result. Blood Venous blood specimen / Unknown 08/24/2024 11:43 AM EST 08/24/2024 2:12 PM EST Edmundo Sullivan MD LAB BLOOD ORDERABL ES Final Result Performing Organization Address [facility] Co de Phone Number [facility] [address] [place] [phone] * (ABNORMAL) Lipid Panel, Standard (08/24/2024 11:43 AM EST) Triglycerides 69 <150 mg/dL [facility] Comment:Desirable Triglyceri de: less than 150 mg/dLBorderline High Triglyceride 150-199 mg/dLHigh Triglyceride: 200-499 mg/dLVery High Triglyceride: greater than or equal to 5OO mg/dL Cholesterol 99 <200 mg/dL [facility] Comment:Desirable Cholestero l: less than 200 mg/dLBorderline High Cholesterol: 200-239 mg/dLHigh Cholesterol: greater than 239 mg/dL LDL Cholesterol Calculated 50 <100 mg/dL [facility] Comment:Desirable LDL: less than 100 mg/dLNear Optimal/Above Optimal LDL: 110- 129 mg/dLBorderline High LDL: 130-159 mg/dLHigh LDL: 160-189 mg/dLVery High LDL: greater than or equal to 190 mg/dL HDL Cholesterol 36(L) >40 mg/dL [facility] Comment:Desirable HDL: great er than 40 mg/dL Note: This HDL assay may give artificially low results in patients with liver disease. Blood Venous blood specimen / Unknown 08/24/2024 11:43 AM EST 08/24/2024 2:12 PM EST Edmundo Sullivan MD LAB BLOOD ORDERABL ES Final Result Performing Organization Address [facility] Co de Phone Number [facility] [address] [place] [phone] from Last 3 Months or Most Recently Relevant to Health Maintenance Insurance [facility] STANDARD DENTAL-[facility] MEDICAID STAND ADULT Care Teams Dry Cleaner Relationship Specialty Start Date End Date Edmundo Young MD [address] [place] [phone] PCP - General Internal Medicine 07/31/20
--- OUTSIDE RECORDS SUMMARY | 2025-06-14 17:47 | XMS_ITS | Continuity of Care Document ---
Author Organization ESTEVAN SIMS MD [facility], Main Office Address [address] [place] [phone] Assessment No assessment recorded. Plan of Treatment Reminders Order Date Submit Date Provider Last Modified By Organization Details Last Modified Time Details Appointments None recorded. Lab None recorded. Referral None recorded. Procedures None recorded. Surgeries None recorded. Imaging None recorded. Medication Orders phentermine 37.5 mg tablet 2024 025 [id number] [address] [place], [address], 11:37:04 ondansetron HCl 4 mg tablet 2024 025 [id number], [address] [place], [address], 17:00:37 Imodium A-D 2 mg tablet 2024 025 [id number], [address] [place], [address], 17:00:37 Patient TargetsNo targets recorded. Patient InstructionsNo instructions recorded. Reason for Referral None Reported. Medical Equipment None Reported. Allergies No known [...] cm 92 /min 97.5 [degF] 40.1 kg/m2 82987.5 8 g 140/85 mm[Hg] Samira CABRAL 5 15:28:32 Social History None recorded. Functional Status None recorded. Mental Status None recorded. Family History Nothing Reported. Medical History No medical history recorded. Gynecological HistoryNo gynecological history recorded. Obstetrics History GPAL:G 0 P 0 0 0 0 Past Encounters Encounter ID Performer Location Encounter Start Date Encounter Closed Date Diagnosis/Indication Diagnosis SNOMED-CT Code Diagnosis ICD10 Code Diagnosis IMO Codes Diagnosis Note [id number] Rodri Jacques MD Main Office [address] [place] [phone] 05/17/2025 15:18:00 05/17/2025 16:04:11 Body mass index 40+ - severely obese 285408591 E66.01 79854062 BMI 40.1pt aware of the insurance denial [...] one monthquest ions and concerns addressed. Nausea 241961879 R11.0 37200 zofran PRN for nausea- needs refill Loose stool 321911094 R1 9.5 160940 since gall bladder removed - is having issues with diarrhea/ loose stools after eatingwill order imodium-aw are that orlistat- another weight loss medication - can cause loose stools- pt would like to see if the phentermin e is approved Health Concerns Section Related Observation LastModified by Organization Detai ls LastModified Time None Recorded Concern Status LastModified by Organization Details LastModified Time None Recorded Payers Encounter Date Sequence Insurance Name Policy Number Policy Christianson Covered Member ID Christianson Member ID Guarantor Name 05/17/2025 2 [place]: [facility] Rosy Faith [id number] Rosy Faith 05/17/2025 1 [facility] [id number] Rosy Faith [id number] Rosy Faith Notes Date Note Type Note Provider Name and Address Organization Details Recorded Time 05/17/2025 text/html ROS as noted in the HPI weight management has not been able to lose weightwilling to start;Orlistat offered, but she is worried about diarrhea.zepbound request has been submitted and denieddoes have occasional nausea- no related to heartburnalso is having issues with diarrhea since gall bladder surgery- will order imodium to be taken as directedcholecystec ej: diarrhea. migraine hx. has had HBP; no [...] LDL-64, TC- 120, amylase/lipase- wnl A1C%- 5.8% Rodri Jacques MD [address] [place] [address], [phone], [facility] RODRI JACQUES MD [facility] 05/22/2025 11:50:28 OBGyn Episode No OBEpisode recorded.
--- OUTSIDE RECORDS SUMMARY | 2025-06-14 17:48 | XMS_ITS | Encounter Summary ---
Author Organization [employer] Address [address] [facility] 7t [place] [address] Care Team Providers Care Radio Electronics Officer Name Role Phone Edmundo Young MD Primary Care Prov ider Encounter Details Date Type Department Care Team ([facility] st Contact Info) Description 11/05/2022 Orders Only [facility] [address] [place], [place] [phone] Edmundo Young MD [address] [place], [place] [phone] Social History Tobacco Use Types Packs/Day Years [...] Orientation Straight 08/24/2024 2: 36 PM EST COVID-19 Exposure Response Date Recorded In the last 10 days, have yo u been in contact with someone who was confirmed or suspected to have Coronavirus/COVID-19? No / Unsure 11/08/2022 3:46 PM EDT documented as of this encounter Functional Status * Over the past 2 weeks, how often have you been bothered by any of the following problems? Question Answer Date of Assessment Author Patient Health Questionnaire-2 Score 0 05/0 07/2022 4:02 PM EDT Amy Redding MA * Over the past 2 weeks, how often have you been bothered by any of the following problems? Question Answer Date of Assessment Author Little interest or pleasure in doing things Not at all 11/08/2022 4:02 PM Amy Cook MA Feeling down, depressed, or hopeless Not at all 11/08/2022 4:02 PM Amy Cook MA Trouble falling or staying a sleep, or sleeping too much Not at all 11/08/2022 4:02 PM Amy Cook MA Feeling tired or having ethel le energy Not at all 11/08/2022 4:02 PM Amy Cook MA Poor appetite or overeating Not at all 11/08/2022 4: 02 PM Amy Cook MA Feeling bad about yourself - or that you are a failure or have let yourself or your family down Not at all 11/08/2022 4:02 PM rFedy Cook MA Trouble concentrating on thi ngs, such as reading the newspaper or watching television Not at all 11/08/2022 4:02 PM Amy Cook MA Moving or speaking so slowly that other people could have noticed? Or the opposite - being so fidgety or restless that you have been moving around a lot more than usual. Not at all 11/08/2022 4:02 PM Amy Cook MA Thoughts that you would be b noemi off or hurting yourself in some way Not at all 11/08/2022 4:02 PM Amy Cook MA Patient Health Questionnaire -9 Score 0 11/08/2022 4:02 PM Amy Cook MA documented as of this encounter Plan of Treatment Not on file documented as of this encounter Visit Diagnoses Not on filedocumented in this encounter Care Teams Radio Electronics Officer Relationship Specialty Start Date End Date Edmundo Young MD [address] [place] [address] ESTEVAN Bergman [phone] PCP - General Internal Medicine 07/31/20 documented as of this encounter
--- OUTSIDE RECORDS SUMMARY | 2025-06-14 17:48 | XMS_ITS | Encounter Summary ---
Author Organization [employer] Address [address] [facility] 7t [place] [address] Care Team Providers Care Integrated Circuits Inspector Name Role Phone Edmundo Young MD Primary Care Prov ider Encounter Details Date Type Department Care Team ([facility] Contact Info) Description 06/14/2025 Orders Only [facility] [address] [place], [place] [phone] Sherin Chiang MD [address] [place] [address] Social History Tobacco Use Types Packs/Day Years Used Date Smoking Tobacco: Never Passive Smoke Exposure: Never Smokeless Tobacco: Never Alcohol Use Standard [...] on file documented as of this encounter Procedures Procedure Name Priority Date/Time Associated Diagnosis Comments US EXTREMITY NON VASCULAR LEFT LIMITED Routine 06/14/2025 1:48 PM EST documented in this encounter Results * US Extremity Non Vascular Left Limited (06/14/2025 1:48 PM EST) Anatomical Region Laterality Modality Ultrasound 06/14/2025 1:48 PM EST Narrative 06/14/2025 4:51 PM EST [facility] [address] [place] [address] [place] [address] Ultrasound Report Signed Patient: Rosy Faith MR#: [id number] : 1985 Acct:[id number] Age/Sex: 40 / F ADM Date: 06/14/25 Loc: HO.HMGCX Attending Dr: Sherin Chiang MD Ordering Physician: Sherin Chiang MD Date of Service: 06/14/25 Procedure(s): US Extremity Nonvas Limited LT Accession Number(s): [id number] cc: Sherin Chiang MD; Edmundo Young MD [...] Jatinder Sage MD 06/14/2025 04:48 PM EST RP Dictated By: Jatinder Sage MD Signed By: <Electronically signed by Jatinder Sage MD in OV> 06/14/25 1648 DD/ 1348 TD/TT: 06/14/25 1355 Salesperson [employer]: Procedure Note Donotuseinterpreter, Image - 06/14/2025 [facility] [address] [place] [address] [place] [address] Ultrasound Report Signed Patient: Kalpana Faith#: [id number] : 1985Acct:[id number] Age/Sex: 40 / FADM Date: 06/14/25 Loc: [facility] Attending Dr: Sherin Chiang MD Ordering Physician: Sherin Chiang MD Date of Service: 06/14/25 Procedure(s): US Extremity Nonvas Limited LT Accession Number(s): [id number] cc: Sherin Chiang MD; Edmundo Young MD [...] Jatinder Sage MD 06/14/2025 04:48 PM EST RP Dictated By: Jatinder Sage MD Signed By: <Electronically signed by Jatinder Sage MD in OV> 06/14/25 1648 DD/ 1348 TD/TT: 06/14/25 1355 Salesperson [employer]: NHUNG us Sherin Chiang MD IM US PROCEDURES Final Resul t documented in this encounter Visit Diagnoses Not on filedocumented in this encounter Additional Health Concerns Assessment Noted Time PHQ-9 Depression Total Score: 2 11/18/19 24 10:55 AM EDT documented as of this encounter Care Teams Integrated Circuits Inspector Relationship Specialty Start Date End Date Edmundo Young MD [address] [place] [phone] PCP - General Internal Medicine 07/31/20 documented as of this encounter
--- OUTSIDE RECORDS SUMMARY | 2025-06-14 17:48 | XMS_ITS | Clinical Summary ---
Author Organization [address] Building Address [address] [place] [phone] Phone Care Team Providers Care Product Communications Manager Name Role Phone Parish De La O [...] daily for one day 04/22/2020 Active Immunizations Immunization Administration Dates Next Due MMR, measles mumps and rubel la Live (Priorix; M-M-R II) 12mo and older 07/16/2014 PPD Test 07/10/2014 Tdap Tetanus diptheria acell ular pertussis (Boostrix; Adacel) 7yo and older 04/21/2017,02/23/2012 Surgical History Surgery Date Site/Laterality Comments SECTION 2007 and 2012 PROCEDURE: HISTORICAL ; COMMENT: 2016 sigmoid resection 2nd to paraguard IUD perforation involving sigmoid OTHER SURGICAL HISTORY PROCEDURE: WA WEDGE EXCISION SKIN NAIL FOLD HAND SURGERY PROCEDURE: WA UNLISTED PROCEDURE HANDS/FINGERS; COMMENT: historical, finger surgery [...] of 3 - 19+ 3-dose series) 2006 HPV Vaccines (1 - 3-dose SCD M series) 2014 Cervical Cancer Screening: P ap Smear 01/15/2020 01/14/2017 Social Influencers of Health Screening 06/13/2022 Depression Screening 07/11/2024 COVID-19 Vaccine (1 - 2024-2 6 season) 2025 Influenza Vaccine (#1) 2025 DTaP,Tdap,and Td Vaccines (3 - Td or Tdap) 04/21/2027 04/21/2017, 02/23/2012 RSV Immunization Adult Patients (1 - 1-dose 75+ series) 2062 MMR Vaccines Aged Out 07/16/2014 No longer [...] Procedure Name Priority Date/Time Associated Diagnosis Comments PAP SMEAR Routine 01/14/2017 HEPATITIS C SCREENING Routine 12/29/2016 HIV SCREENING Routine 12/29/2016 from Last 3 Months or Most Recently Relevant to Health Maintenance Results * Pap Smear (01/14/2017) Pap smear Negative, [facility]ed [facility] Provider MD HEALTH MAINTENANCE Final Result * HIV Screening (12/29/2016) HIV Screening Abstracted [facility] Provider MD HEALTH MAINTENANCE Final Result * Hepatitis C Screening (12/29/2016) Hepatitis C Screening Abstracted [facility] Provider MD HEALTH MAINTENANCE Final Result from Last 3 Months or Most Recently Relevant to Health Maintenance Insurance [place]ICA[place] Advance Directives Documents on File Type Date Recorded Patient [employer] Furnish[employer] Salesperson Expl anation Health Care Decision (hx) 07/05/2017 JACOBY ERICKSON DIRECTIVE Care Teams Product Communications Manager Relationship Specialty Start Date End Date Parish De La O MD [address] [place] [address] [facility] [place] [phone] PCP - General Internal Medicine 11/30/21
== END 2025-06-14 13:38 | disposition home or self-care (01) ==
LOC: HO.HMGCX 13:37
PROVIDERS: PCP Internal Medicine; Visit Provider Pediatrics
DX: R22.32 Localized swelling, mass and lump, left upper limb (principal)
CPT/HCPCS: 76882

== ENCOUNTER → 2025-06-14 13:48 | Outpatient (BNV) | payer OTHER, SELFPAY | PROVIDERS: PCP Internal Medicine; Visit Provider Radiology Diagnostic Ultrasound | DX: R22.32 Localized swelling, mass and lump, left upper limb (principal) | CPT/HCPCS: 76882 ==